=== PATIENT | male | born 1985 | race Caucasian/White ===

== ENCOUNTER 2017-03-10 22:24 | Emergency (ER) | payer MEDICAID ==
[2017-03-10 22:25] VITALS: BP 131/82; PULSE 74; RESP 16; TEMP 98.2; O2SAT 98
[2017-03-10] MEDS ORDERED: DEPA500T3 PO (22:45)
--- NOTE | 2017-03-10 22:45 | PD ---
Physical Exam Date Seen by Provider: Mar 10, 2017 Time Seen by Provider: 22:42 Data Data Last Documented VS Vital Signs Date Time Temp Pulse Resp B/P Pulse Ox O2 Delivery O2 Flow Rate FiO2 03/10/17 22:25 98.2 74 16 131/82 98 Room Air MDM Supervised Visit with RAJAT: No Narrative Course 31 YO M with PMH of epilepsy with complaint of 3 day history of pruritic rash. Started on hands, now spread to shoulder and waist. States "it's scabies." Vitals reviewed. Awaiting bed placement. Claudine Bae Mar 10, 2017 22:45
[2017-03-10] MEDS ORDERED: methylPREDNISolone SOD SUCC 125 MG/2 ML VIAL IM ONE (23:45)
--- NOTE | 2017-03-11 00:10 | PD ---
HPI Chief Complaint: Skin Problem Time Seen by Provider: 23:50 Travel History International Travel<30 days: No Contact w/Intl Traveler<30days: No Traveled to known affect area: No History of Present Illness HPI Patient is a 31-year-old male presenting to emergency for evaluation of a pruritic rash that started 2 days ago. Patient denies any new lotion, detergents, soaps, foods. Patient's partner is present and does not have rash. He denies any fevers, chills, sore throat, cough, chest pain, abdominal pain. PFSH Past Medical History Medical other: Yes (EPILEPSY ) Past Surgical History Surgical History: No Previous Surgery Social History Alcohol Use: No Tobacco Use: No Substance Use: No Allergies-Medications (Allergen,Severity, Reaction): Coded Allergies: No Known Allergies (Unverified , 03/10/17) Reported Meds & Prescriptions Reported Meds & Active Scripts Active Reported Depakote ER (Divalproex Sodium) 500 Mg Jose 1,000 Mg PO DAILY Review of Systems Except as stated in HPI: all other systems reviewed are Neg Skin: Positive Rash, Positive Itching Physical Exam Narrative GENERAL: Well-nourished, well-developed patient. SKIN: Focused skin assessment warm/dry. Fine macular rash on bilateral upper extremities, bilateral hands, anterior chest wall, back. No excoriations, induration, or exudate noted. No petechiae or oral lesions noted. HEAD: Normocephalic. EYES: No scleral icterus. No injection or drainage. NECK: Supple, trachea midline. No JVD or lymphadenopathy. CARDIOVASCULAR: Regular rate and rhythm without murmurs, gallops, or rubs. RESPIRATORY: Breath sounds equal bilaterally. No accessory muscle use. GASTROINTESTINAL: Abdomen soft, non-tender, nondistended. MUSCULOSKELETAL: No cyanosis, or edema. BACK: Nontender without obvious deformity. No CVA tenderness. Data Data Last Documented VS Vital Signs Date Time Temp Pulse Resp B/P Pulse Ox O2 Delivery O2 Flow Rate FiO2 03/10/17 22:25 98.2 74 16 131/82 98 Room Air Orders Methylprednisolone So Succ Inj (Solumedr (03/10/17 23:45) MDM Medical Decision Making Medical Screen Exam Complete: Yes Emergency Medical Condition: Yes Interpretation(s) Vital Signs Date Time Temp Pulse Resp B/P Pulse Ox O2 Delivery O2 Flow Rate FiO2 03/10/17 22:25 98.2 74 16 131/82 98 Room Air Differential Diagnosis Viral exanthem versus contact dermatitis versus herpetic lesions versus allergic reaction versus other Narrative Course Patient's 31-year-old male presenting with 2 days of a pruritic rash that has spread diffusely on his upper extremities and trunk. Patient was given a dose of Solu-Medrol IM in the emergency department. His vital signs are stable, he is no respiratory symptoms. Pt googled scabies and felt that this is what he had however his significant other has no symptoms. Rash does not appear to be consistent with scabies however patient will be given a prescription for permethrin cream. He was advised on how to use this cream. Patient was also seen and evaluated by my attending physician. He was encouraged return to emergency department if no improvement in symptoms or if symptoms worsened. He verbalized understanding of instructions. Patient is stable for discharge. Diagnosis Primary Impression: Scarlatiniform rash Referrals: [facility] Primary Care Physician Patient Instructions: Acute Rash (ED), General Instructions Additional Instructions: Return to emergency department immediately for any new or worsening symptoms Take medications as directed Follow-up with a primary doctor Med/Other Pt SpecificInfo: Prescription(s) given Scripts Permethrin Topical 5% 5% Cream1 Applic TOPICAL ONCE #1 TUBE Ref 0 Prov:Teresita Soni 03/11/17 Prednisone 50 Mg Tab50 Mg PO DAILY #5 TAB Ref 0 Prov:Teresita Soni 03/11/17 Disposition: 01 DISCHARGE HOME Condition: Stable Teresita Soni Mar 11, 2017 00:10
[2017-03-11] MEDS ORDERED: PERM5CRE TOPICAL (00:14)
[2017-03-11] MEDS ORDERED: PRED50 PO (00:14)
== END 2017-03-11 00:21 | disposition home or self-care (01) ==
LOC: NEPD 22:24
DX: A38.9 Scarlet fever, uncomplicated (principal)
CPT/HCPCS: 96372; 99284; J2930

== ENCOUNTER 2017-09-14 19:53 | Inpatient (IN) | payer MEDICARE, MEDICAID, OTHER ==
[~2017-09-14] VITALS: Ht 177.8 cm; Wt 77.0 kg
[~2017-09-14 19:53] MED LIST: DEPA500T3 PO; PERM5CRE TOPICAL; PRED50 PO
[2017-09-14] MEDS ORDERED: SODIUM CHLOR 0.9% 1000 ML INJ 1,000 ML IV SCH ×3 (20:08→22:04)
[2017-09-14] MEDS ORDERED: MIDAZOLAM HCL 2 MG/2 ML VIAL IM ONE ×2 (20:15→22:15)
[2017-09-14] MEDS ORDERED: HALOPERIDOL LACTATE 5 MG/ML AMP IM ONE ×2 (20:15→22:15)
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
[2017-09-14 20:23] VITALS: BP 138/92; PULSE 130; RESP 22; TEMP 100.6; TEMP 99.6
[2017-09-14 20:29] VITALS: BP 125/76; PULSE 103; RESP 16; O2SAT 96
[2017-09-14 21:00] VITALS: BP 129/73; PULSE 90; RESP 20; O2SAT 98
--- NOTE | 2017-09-14 21:02 | RADRPT ---
EXAM DATE/TIME: 09/14/2017 20:35 [facility] COMPARISON: No previous studies available for comparison. INDICATIONS : Evaluate lung status. Patient admitted for psychologic evalautation. MEDICAL HISTORY : Unobtainable. SURGICAL HISTORY : Unobtainable. ENCOUNTER: Initial ACUITY: 1 day PAIN SCORE: Non-responsive. LOCATION: Bilateral chest FINDINGS: A single view of the chest demonstrates the lungs to be symmetrically aerated without evidence of mas s, infiltrate or effusion. The cardiomediastinal contours are unremarkable. Osseous structures are intact. CONCLUSION: No acute disease. Darius Cheney MD on September 14, 2017 at 21:00 Board Certified Radiologist. This report was verified electronically.
[2017-09-14 21:30] LABS: AUTOMATED NEUTROPHIL # 21.7 TH/MM3 (1.8-7.7); BASOPHIL # 0.1 TH/MM3 (0-0.2); BASOPHIL % 0.3 % (0.0-2.0); HEMATOCRIT 48.6 % (39.0-51.0); HEMO FLAGS DIFF FINAL; LYMPH % 10.2 % (9.0-44.0); LYMPHOCYTE # 2.7 TH/MM3 (1.0-4.8); MEAN CELL VOLUME 90.7 FL (80.0-100.0); MEAN CORPUSCULAR HEMOGLOBIN 30.4 PG (27.0-34.0); MEAN CORPUSCULAR HGB CONC 33.5 % (32.0-36.0); MONO % 6.2 % (0.0-8.0); NEUT % 83.3 % (16.0-70.0); PLATELET COUNT 361 TH/MM3 (150-450); RED BLOOD COUNT 5.36 MIL/MM3 (4.50-5.90); RED CELL DISTRIBUTION WIDTH 12.8 % (11.6-17.2)
[2017-09-14 21:33] LABS: APTT (PATIENT) 25.6 SEC (24.3-30.1); INTERNATIONAL NORMALIZED RATIO 1.1 RATIO; PROTHROMBIN TIME - PATIENT 11.5 SEC (9.8-11.6)
[2017-09-14 21:36] LABS: BLOOD, URINE SMALL (NEG); GLUCOSE,URINE TRACE mg/dL (NEG); HYALINE CAST, URINE 163 /lpf (RARE); KETONE, URINE 40 mg/dL (NEG); MUCUS URINE MANY /lpf (OCC); NITRITE,URINE NEG (NEG); SQUAMOUS EPITHELIAL CELL URINE 2 /hpf (0-5); URINE COLOR YELLOW (YELLW/STRAW)
[2017-09-14 21:39] LABS: COMMENT (UR) CATH-CULT NOT IND; CULTURE IF INDICATED CATH CULTURE NOT IND
[2017-09-14 21:42] LABS: ALCOHOL LESS THAN 3 MG/DL (0-5); ANION GAP 19 MEQ/L (5-15); AST (GOT) 21 U/L (15-37); BICARBONATE 23.4 MEQ/L (21.0-32.0); BLOOD UREA NITROGEN 12 MG/DL (7-18); CHLORIDE 101 MEQ/L (98-107); GLOMERULAR FILTRATION RATE 40 ML/MIN (>89); POTASSIUM 3.9 MEQ/L (3.5-5.1); SODIUM (NA) 143 MEQ/L (136-145)
[2017-09-14 21:43] LABS: ALT (GPT) 17 U/L (12-78)
[2017-09-14 21:53] LABS: ALKALINE PHOSPHATASE 104 U/L (45-117); CREATINE KINASE 316 U/L (39-308); TOTAL BILIRUBIN ADULT 0.8 MG/DL (0.2-1.0)
--- NOTE | 2017-09-14 21:58 | RADRPT ---
EXAM DATE/TIME: 09/14/2017 21:37 [facility] COMPARISON: No previous studies available for comparison. INDICATIONS : Trauma. Altered mental status. RADIATION DOSE: 56.35 CTDIvol (mGy) MEDICAL HISTORY : Non-responsive. SURGICAL HISTORY : Non-responsive. ENCOUNTER: Initial ACUITY: 1 day PAIN SCALE: Non-responsive LOCATION: cranial TECHNIQUE: Multiple contiguous axial images were obtained of the head. Using automated exposure control and adj ustment of the mA and/or kV according to patient size, radiation dose was kept as low as reasonably a chievable to obtain optimal diagnostic quality images. DICOM format image data is available electro nically for review and comparison. FINDINGS: CEREBRUM: The ventricles are normal for age. No evidence of midline shift, mass lesion, hemorrhage or acute in farction. No extra-axial fluid collections are seen. POSTERIOR FOSSA: The cerebellum and brainstem are intact. The 4th ventricle is midline. The cerebellopontine angle i s unremarkable. EXTRACRANIAL: The visualized portion of the orbits is intact. SKULL: The calvaria is intact. No evidence of skull fracture. CONCLUSION: Normal examination for a patient of this age. Darius Cheney MD on September 14, 2017 at 21:54 Board Certified Radiologist. This report was verified electronically.
[2017-09-14 22:00] VITALS: BP 120/73; PULSE 94; RESP 18; O2SAT 99
--- NOTE | 2017-09-14 22:02 | RADRPT ---
EXAM DATE/TIME: 09/14/2017 21:39 [facility] COMPARISON: No previous studies available for comparison. INDICATIONS : Trauma. Altered mental status. RADIATION DOSE: 31.86 CTDIvol (mGy) MEDICAL HISTORY : Non-responsive. SURGICAL HISTORY : Non-responsive. ENCOUNTER: Initial ACUITY: 1 day PAIN SCALE: Non-responsive LOCATION: neck TECHNIQUE: Volumetric scanning of the cervical spine was performed. Multiplanar reconstructions in the sagittal, coronal and oblique axial planes were performed. Using automated exposure control and adjustment o f the mA and/or kV according to patient size, radiation dose was kept as low as reasonably achievable to obtain optimal diagnostic quality images. DICOM format image data is available electronically f or review and comparison. FINDINGS: VERTEBRAE: Normal vertebral body height. ALIGNMENT: No evidence of subluxation. C2-C3: The bony spinal canal is normal in size. No evidence of disc bulge or herniation. The neural forami na are bilaterally patent. C3-C4: The bony spinal canal is normal in size. No evidence of disc bulge or herniation. The neural forami na are bilaterally patent. C4-C5: The bony spinal canal is normal in size. No evidence of disc bulge or herniation. The neural forami na are bilaterally patent. C5-C6: There is a left paracentral disc protrusion resulting in mild compression of the left hemicord and le ft lateral recess encroachment. C6-C7: The bony spinal canal is normal in size. No evidence of disc bulge or herniation. The neural forami na are bilaterally patent. C7-T1: The bony spinal canal is normal in size. No evidence of disc bulge or herniation. The neural forami na are bilaterally patent. CONCLUSION: No acute bony abnormality. Left paracentral disc protrusion at C5-6 resulting in at least a mild impr ession on the left hemicord and left lateral recess stenosis. Darius Cheney MD on September 14, 2017 at 21:56 Board Certified Radiologist. This report was verified electronically.
[2017-09-14 22:03] LABS: ACETAMINOPHEN LESS THAN 2.0 MCG/ML (10.0-30.0)
[2017-09-14 22:23] LABS: BLOOD GAS BASE EXCESS -11.4 mmol/L (-2-2); BLOOD GAS CARBOXYHEMOGLOBIN 0.8 % (0-4); BLOOD GAS HCO3 14 mmol/L (22-26); BLOOD GAS METHEMOGLOBIN 0.7 % (0-2); BLOOD GAS O2 HGB SATURATION 95 % (90-100); BLOOD GAS PCO2 29 mmHg (38-42); BLOOD GAS PO2 103 mmHG (61-120); BLOOD GAS TOTAL HGB 14.9 G/DL (12.0-16.0); TEMP CORR TO 98.6
[2017-09-14 22:24] LABS: CRITICAL VALUE YES; DRAW SITE LT RADIAL; FIO2 21 %; NUMBER OF ARTERIAL PUNCTURES 1; STAT YES; ULNAR PULSE PRESENT
[2017-09-14 23:00] VITALS: BP 129/73; PULSE 73; RESP 20; O2SAT 99
[2017-09-14 23:15] LABS: LACTIC ACID GHOST NOT REPORTABLE
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
[2017-09-14] MEDS ORDERED: ONDANSETRON HCL 4 MG/2 ML VIAL IV PUSH PRN (23:45)
[2017-09-14] MEDS ORDERED: BISACODYL 10 MG SUPP RECTAL PRN (23:45)
[2017-09-14] MEDS ORDERED: MAGNESIUM HYDROXIDE SUSP 30 ML CUP PO PRN (23:45)
[2017-09-14] MEDS ORDERED: LACTULOSE SYRUP 20 GM/30 ML CUP PO PRN (23:45)
[2017-09-14] MEDS ORDERED: MISCELLANEOUS NURSING INFORMATION XX SCH (23:45)
[2017-09-14] MEDS ORDERED: PERMETHRIN 5% CREAM 60 GM TOPICAL ONE (23:45)
[2017-09-14] MEDS ORDERED: CHLORHEXIDINE GLUCONATE 2 % 1 PACK (2 CLOTHS) TOP PRN (23:45)
[2017-09-14] MEDS ORDERED: ACETAMINOPHEN 325 MG TAB PO PRN (23:45)
[2017-09-14] MEDS ORDERED: SENNOSIDES 8.6 MG TAB PO PRN (23:45)
[2017-09-14] MEDS ORDERED: RESP: ALBUTEROL 2.5 MG/IPRATROPIUM 0.5 MG NEB (PRN) INH (23:45)
[2017-09-14] MEDS ORDERED: SODIUM CHLORIDE 0.9% FLUSH 10 ML FLUSH IV FLUSH PRN (23:45)
[2017-09-15] VITALS (16 sets, daily range): BP systolic 114–127; BP diastolic 63–77; PULSE 55–100; RESP 13–20; TEMP 97.5–98.8; O2SAT 97–100
[2017-09-15] MEDS ORDERED: SODIUM CHLOR 0.9% 1000 ML INJ 1,000 ML IV ONE ×5 (00:45→01:00)
[2017-09-15] MEDS: CHLORHEXIDINE GLUCONATE 2 % 1 PACK (2 CLOTHS) TOP SCH (04:00)
[2017-09-15 04:13] LABS: MEAN CORPUSCULAR HEMOGLOBIN 30.6 PG (27.0-34.0); MEAN CORPUSCULAR HGB CONC 34.4 % (32.0-36.0); PLATELET COUNT 255 TH/MM3 (150-450); RED BLOOD COUNT 4.39 MIL/MM3 (4.50-5.90); RED CELL DISTRIBUTION WIDTH 12.7 % (11.6-17.2); WHITE BLOOD COUNT 17.4 TH/MM3 (4.0-11.0)
[2017-09-15 04:17] LABS: HEMO FLAGS AUTO DIFF
[2017-09-15 04:31] LABS: ALKALINE PHOSPHATASE 74 U/L (45-117); ALT (GPT) 17 U/L (12-78); ANION GAP 11 MEQ/L (5-15); AST (GOT) 27 U/L (15-37); BICARBONATE 22.9 MEQ/L (21.0-32.0); BLOOD UREA NITROGEN 10 MG/DL (7-18); CHLORIDE 108 MEQ/L (98-107); GLOMERULAR FILTRATION RATE 93 ML/MIN (>89); MAGNESIUM 2.4 MG/DL (1.5-2.5); POTASSIUM 3.4 MEQ/L (3.5-5.1); SODIUM (NA) 142 MEQ/L (136-145); TOTAL BILIRUBIN ADULT 0.7 MG/DL (0.2-1.0)
[2017-09-15] MEDS: SODIUM CHLOR 0.9% 1000 ML INJ 1,000 ML IV SCH ×3 (04:59→23:20)
[2017-09-15 07:16] LABS: BANDS 3 % (0-6); NEUTROPHIL # MANUAL DIFF 13.6 TH/MM3 (1.8-7.7); POLYS (SEG NEUTROPHILS) 75 % (16-70); WBC DIFF SAMPLE 100
[2017-09-15 07:17] LABS: PLATELET ESTIMATE SMEAR NORMAL (NORMAL); PLATELET MORPHOLOGY NORMAL (NORMAL); SCAN/DIFF FINAL DIFF MANUAL
[2017-09-15] MEDS ORDERED: POTASSIUM CHLORIDE 20 MEQ CONTROLLED RELEASE TAB PO ONE (07:30)
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
[2017-09-15] MEDS: predniSONE 50 MG TAB PO SCH (09:00)
[2017-09-15] MEDS: DOCUSATE SODIUM 50 MG/SENNA 8.6 MG TAB PO SCH ×2 (09:00→20:49)
[2017-09-15] MEDS: DIVALPROEX SODIUM E.R. 500 MG TAB PO SCH (09:28)
[2017-09-15] MEDS: FAMOTIDINE 20 MG/2 ML VIAL IV PUSH SCH ×2 (09:32→20:50)
[2017-09-15] MEDS: SODIUM CHLORIDE 0.9% FLUSH 10 ML FLUSH IV FLUSH SCH ×2 (09:32→20:50)
[2017-09-15] MEDS: POTASSIUM CHLOR 10 MEQ PREMIX 100 ML IV SCH ×3 (09:35→12:46)
[2017-09-15] MEDS: MULTIVITAMIN INJ 10 ML, THIAMINE INJ 100 MG, FOLIC ACID INJ 1 MG in SODIUM CHLORID 0.9%... IV SCH (09:42)
[2017-09-15] MEDS: ENOXAPARIN SODIUM 40 MG/0.4 ML SYRINGE SQ SCH (09:46)
--- NOTE | 2017-09-15 13:49 | EKG ---
Date Performed: 09/14/2017 Time Performed: 20:24:17 PTAGE: 32 years EKG: SINUS TACHYCARDIA INCOMPLETE RIGHT BUNDLE BRANCH BLOCK ABNORMAL RHYTHM ECG NO PREVIOUS TRACING DOCTOR: Betsy Gillette Interpretating Date/Time 09/15/2017 13:47:43
[2017-09-15] MEDS ORDERED: MELATONIN 5 MG TAB PO SCH (22:00)
[2017-09-16] VITALS: BP 109/62; PULSE 78; RESP 18; TEMP 97.9; O2SAT 97
[2017-09-16 02:00] VITALS: PULSE 81
[2017-09-16 04:00] VITALS: BP 117/63; PULSE 77; RESP 52; TEMP 99; O2SAT 99
[2017-09-16] MEDS: CHLORHEXIDINE GLUCONATE 2 % 1 PACK (2 CLOTHS) TOP SCH (04:00)
[2017-09-16 06:00] VITALS: PULSE 51
[2017-09-16] MEDS: DIVALPROEX SODIUM E.R. 500 MG TAB PO SCH (08:09)
[2017-09-16] MEDS: FAMOTIDINE 20 MG/2 ML VIAL IV PUSH SCH (08:11)
[2017-09-16] MEDS: ENOXAPARIN SODIUM 40 MG/0.4 ML SYRINGE SQ SCH (08:13)
[2017-09-16] MEDS: DOCUSATE SODIUM 50 MG/SENNA 8.6 MG TAB PO SCH (08:16)
[2017-09-16] MEDS: predniSONE 50 MG TAB PO SCH (08:16)
[2017-09-16] MEDS: SODIUM CHLORIDE 0.9% FLUSH 10 ML FLUSH IV FLUSH SCH (08:17)
[2017-09-16] MEDS: MULTIVITAMIN INJ 10 ML, THIAMINE INJ 100 MG, FOLIC ACID INJ 1 MG in SODIUM CHLORID 0.9%... IV SCH (08:18)
[2017-09-16 08:22] VITALS: O2SAT 100
[2017-09-16] MEDS: SODIUM CHLOR 0.9% 1000 ML INJ 1,000 ML IV SCH (11:24)
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
[2017-09-16] MEDS ORDERED: ARIPiprazole 5 MG TAB PO SCH (12:15)
[2017-09-16] MEDS ORDERED: HALOPERIDOL LACTATE 5 MG/ML AMP IM PRN (12:15)
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
[2017-09-16] MEDS ORDERED: DIVALPROEX SODIUM E.R. 500 MG TAB PO SCH (21:00)
== END 2017-09-16 16:00 | DRG 885 ==
LOC: NEPD 19:53 → NEDA 22:23 → HIMN 09-15 03:30
PROVIDERS: ADMIT Internal Medicine Critical Care Medicine; ATTEND Internal Medicine Critical Care Medicine
DX: F29 Unspecified psychosis not due to a substance or known physiological condition (principal); N17.9 Acute kidney failure, unspecified; E87.2 Acidosis; Z78.1 Physical restraint status; F19.959 Other psychoactive substance use, unspecified with psychoactive substance-induced psychotic disorder, unspecified; R45.1 Restlessness and agitation; F31.9 Bipolar disorder, unspecified; W17.89XA Other fall from one level to another, initial encounter; Y93.01 Activity, walking, marching and hiking; Y92.89 Other specified places as the place of occurrence of the external cause; Y99.9 Unspecified external cause status; M50.222 Other cervical disc displacement at C5-C6 level; E87.6 Hypokalemia; L53.8 Other specified erythematous conditions
CPT/HCPCS: 36600; 70450; 71010; 72125; 80053; 80164; 80178; 80307; 81001; 82550; 82552; 82805; 83605; 83735; 84100; 84443; 85007; 85025; 85027; 85610; 85730; 86403; 87040; 87086; 87186; 87205; 87641; 93005; 96360; 96372; J1630; J1650; J2250; J3411; J3480; J7030; J7040; J7512

== ENCOUNTER 2017-09-16 14:53 | Inpatient (IN) | payer MEDICARE, MEDICAID, OTHER ==
[~2017-09-16] VITALS: Ht 175.3 cm; Wt 72.6 kg
[2017-09-16 16:10] VITALS: BP 127/66; PULSE 82; RESP 18; TEMP 98.6; O2SAT 97
[2017-09-16] MEDS ORDERED: MAGNESIUM HYDROXIDE SUSP 30 ML CUP PO PRN (17:45)
[2017-09-16] MEDS ORDERED: ALUMINUM/MAGNESIUM/SIMETH 30 ML CUP PO PRN (17:45)
[2017-09-16] MEDS ORDERED: diphenhydrAMINE HCL 50 MG/ML VIAL IM PRN (17:45)
[2017-09-16] MEDS ORDERED: NICOTINE 21 MG/24 HR PATCH T-DERMAL PRN (17:45)
[2017-09-17 07:02] VITALS: BP 135/83; PULSE 110; RESP 18; TEMP 97.6; O2SAT 97
[2017-09-17] MEDS ORDERED: predniSONE 50 MG TAB PO SCH (09:00)
[2017-09-17] MEDS: REMOVE OLD PATCH T-DERMAL SCH ×2 (09:00→10:31)
[2017-09-17] MEDS: DIVALPROEX SODIUM E.R. 500 MG TAB PO SCH ×2 (09:13→10:31)
[2017-09-17 11:25] LABS: AUTOMATED NEUTROPHIL # 6.7 TH/MM3 (1.8-7.7); BASOPHIL % 0.3 % (0.0-2.0); EOSINOPHIL % 0.4 % (0.0-4.0); HEMATOCRIT 39.8 % (39.0-51.0); HEMOGLOBIN 13.7 GM/DL (13.0-17.0); LYMPH % 28.4 % (9.0-44.0); LYMPHOCYTE # 2.9 TH/MM3 (1.0-4.8); MEAN CORPUSCULAR HEMOGLOBIN 30.6 PG (27.0-34.0); MEAN CORPUSCULAR HGB CONC 34.4 % (32.0-36.0); MEAN PLATELET VOLUME 8.8 FL (7.0-11.0); MONOCYTE # 0.6 TH/MM3 (0-0.9); NEUT % 64.9 % (16.0-70.0); PLATELET COUNT 258 TH/MM3 (150-450); RED BLOOD COUNT 4.47 MIL/MM3 (4.50-5.90); RED CELL DISTRIBUTION WIDTH 12.7 % (11.6-17.2); WHITE BLOOD COUNT 10.4 TH/MM3 (4.0-11.0)
[2017-09-17 11:52] LABS: BICARBONATE 27.7 MEQ/L (21.0-32.0); BLOOD UREA NITROGEN 5 MG/DL (7-18); CALCIUM 9.1 MG/DL (8.5-10.1); CHLORIDE 105 MEQ/L (98-107); CHOLESTEROL 160 MG/DL (120-200); CHOLESTEROL/ HDL RATIO 4.22 RATIO; CREATININE 0.91 MG/DL (0.60-1.30); GLOMERULAR FILTRATION RATE 98 ML/MIN (>89); GLUCOSE,RANDOM 87 MG/DL (74-106); HDL CHOLESTEROL 37.9 MG/DL (40.0-60.0); LDL CHOLESTEROL 99 MG/DL (0-99); SODIUM (NA) 141 MEQ/L (136-145); TRIGLYCERIDES 117 MG/DL (42-150)
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
--- NOTE | 2017-09-17 13:35 | PD.CONS ---
HPI Service [facility] Hospitalists Consult Requested By Psychiatric services Reason for Consult Medical management Primary Care Physician Unknown Diagnoses: History of Present Illness Written by Gabriella Cedeño, acting as scribe for Dr. Crockett on 09/17/17 at 13: 32. This is a 32yr old male with a past medical history significant for bipolar disorder who was admitted under the critical care service 09/14/17 with acute encephalopathy after patient was brought in under [place] act initiated by the police department and according to the paperwork "drug-induced psychosis, unable to care for himself and striking other siblings". Patient apparently was running naked in the apartment complex and got into altercation with police sergeant. Patient was admitted to critical care service for lactic acidosis with lactic acid of 17.5. Urine drug screen was positive for cannabis. He was seen in consultation by psychiatry and has since been admitted to the inpatient psychiatry service. Hospitalist services have been consulted for medical management. Patient seen and examined today. Patient denies any acute medical complaints. He denies any headache, fever, chills, nausea, vomiting, shortness of breath, chest pain or abdominal pain. He is asking for medication to help with wandering thoughts. Review of Systems Except as stated in HPI: all other systems reviewed are Neg Past Family Social History Allergies: Coded Allergies: No Known Allergies (Unverified Allergy, Unknown, 09/14/17) Past Medical History Bipolar disorder Reported Medications Depakote ER (Divalproex Sodium) 500 Mg Jose 1,000 Mg PO DAILY Active Ordered Medications Current Medications Medications (Trade) Dose Ordered Sig/Tyesha Route Start Time Stop Time Status Last Admin (Ativan) 1 mg Q6H PRN PO 09/16/17 17:45 (Benadryl) 50 mg Q6H PRN PO 09/16/17 17:45 (Benadryl Inj) 50 mg Q6H PRN IM 09/16/17 17:45 (Benadryl) 50 mg HS PRN PO 09/16/17 17:45 (Tylenol) 650 mg Q4H PRN PO 09/16/17 17:45 (Milk Of Magnesia Liq) 30 ml DAILY PRN PO 09/16/17 17:45 (Mag-Al Plus Susp Liq) 30 ml Q6H PRN PO 09/16/17 17:45 (Habitrol 21 Mg Patch.24 Hr) 1 patch DAILY PRN T-DERMAL 09/16/17 17:45 Miscellaneous Information 1 DAILY T-DERMAL 09/17/17 09:00 (Depakote Er) 1,000 mg DAILY PO 09/17/17 09:00 09/17/17 10:31 (Deltasone) 50 mg DAILY PO 09/17/17 09:00 Future Hold (Abilify) 5 mg DAILY PO 09/17/17 12:15 Family History No family medical history of psychiatric illness Social History (+)Marijuana use Physical Exam Vital Signs Vital Signs Date Time Temp Pulse Resp B/P (MAP) Pulse Ox O2 Delivery O2 Flow Rate FiO2 09/17/17 07:02 97.6 110 18 135/83 (100) 97 09/16/17 16:10 98.6 82 18 127/66 (86) 97 Physical Exam GENERAL: This is a well-nourished, well-developed patient, in no apparent distress. Awake and alert. SKIN: No rashes, ecchymoses or lesions. Cool and dry. HEAD: Atraumatic. Normocephalic. No temporal or scalp tenderness. EYES: Pupils equal round and reactive. Extraocular motions intact. No scleral icterus. No injection or drainage. ENT: Nose without bleeding or purulent drainage. Throat without erythema, tonsillar hypertrophy or exudate. Uvula midline. Airway patent. NECK: Trachea midline. No lymphadenopathy. Supple, nontender, no meningeal signs. CARDIOVASCULAR: Regular rate and rhythm. 2/6 midsystolic murmur present. RESPIRATORY: Clear to auscultation. Breath sounds equal bilaterally. No wheezes , rales, or rhonchi. GASTROINTESTINAL: Abdomen soft, non-tender, nondistended. No hepato-splenomegaly , or palpable masses. No guarding. MUSCULOSKELETAL: Extremities without clubbing, cyanosis, or edema. No joint tenderness, effusion, or edema noted. No calf tenderness. NEUROLOGICAL: Awake and alert. Able to move all extremities spontaneously. No focal neurologic findings appreciated. Normal speech. Laboratory Laboratory Tests Test 09/17/17 10:47 White Blood Count 10.4 Red Blood Count 4.47 Hemoglobin 13.7 Hematocrit 39.8 Mean Corpuscular Volume 89.0 Mean Corpuscular Hemoglobin 30.6 Mean Corpuscular Hemoglobin Concent 34.4 Red Cell Distribution Width 12.7 Platelet Count 258 Mean Platelet Volume 8.8 Neutrophils (%) (Auto) 64.9 Lymphocytes (%) (Auto) 28.4 Monocytes (%) (Auto) 6.0 Eosinophils (%) (Auto) 0.4 Basophils (%) (Auto) 0.3 Neutrophils # (Auto) 6.7 Lymphocytes # (Auto) 2.9 Monocytes # (Auto) 0.6 Eosinophils # (Auto) 0.0 Basophils # (Auto) 0.0 CBC Comment DIFF FINAL Differential Comment Blood Urea Nitrogen 5 Creatinine 0.91 Random Glucose 87 Calcium Level 9.1 Sodium Level 141 Potassium Level 3.2 Chloride Level 105 Carbon Dioxide Level 27.7 Anion Gap 8 Estimat Glomerular Filtration Rate 98 Total Creatine Kinase 928 Creatine Kinase MB 1.3 Creatine Kinase MB % 0.1 Triglycerides Level 117 Cholesterol Level 160 LDL Cholesterol 99 HDL Cholesterol 37.9 Cholesterol/HDL Ratio 4.22 Result Diagram: 09/17/17 1047 09/17/17 1047 Assessment and Plan Assessment and Plan 32yr old male with a past medical history significant for bipolar disorder who was admitted under the critical care service 09/14/17 with acute encephalopathy after patient was brought in under [place] act initiated by the police department and according to the paperwork "drug-induced psychosis, unable to care for himself and striking other siblings". Bipolar disorder Acute psychosis - possible drug induced psychosis - TSH 1.600 09/14/17 - management per psychiatric team Hypokalemia - po repletion ordered - check mag level - am labs to monitor response Rhabdomyolysis - CK level trending up - encourage fluid intake - repeat CK in am - monitor kidney function closely - if no improvement, patient may need to be moved to med/psych for IVF hydration Steroid use - no indication for steroids at this time. Discontinue. DVT prophylaxis - patient is ambulatory This note was transcribed by livier [Gabriella Cedeño. ]. I, Dr. Gigi Crockett personally performed the history, physical exam, and medical decision making; and confirmed the accuracy of the information in the transcribed note. Authenticated by Dr. Gigi Crockett on 09/17/17 at 13: 48 Gabriella Cedeño Sep 17, 2017 13:35 Gigi Crockett MD Sep 17, 2017 20:09
[2017-09-17] MEDS: ARIPiprazole 5 MG TAB PO SCH (13:44)
[2017-09-17] MEDS ORDERED: POTASSIUM CHLORIDE 10 MEQ CONTROLLED RELEASE TAB PO ONE (14:15)
[2017-09-17 17:25] VITALS: BP 132/78; PULSE 68; RESP 18; TEMP 98.6; O2SAT 99
[2017-09-18 06:02] VITALS: BP 112/63; PULSE 65; RESP 16; TEMP 99.1; O2SAT 100
[2017-09-18 08:20] LABS: BICARBONATE 30.2 MEQ/L (21.0-32.0); BLOOD UREA NITROGEN 6 MG/DL (7-18); CALCIUM 9.2 MG/DL (8.5-10.1); CHLORIDE 105 MEQ/L (98-107); CREATININE 1.01 MG/DL (0.60-1.30); GLOMERULAR FILTRATION RATE 87 ML/MIN (>89); GLUCOSE,RANDOM 107 MG/DL (74-106); SODIUM (NA) 143 MEQ/L (136-145)
[2017-09-18] MEDS: ARIPiprazole 5 MG TAB PO SCH (09:34)
[2017-09-18] MEDS: DIVALPROEX SODIUM E.R. 500 MG TAB PO SCH (09:35)
[2017-09-18 11:00] LABS: HEMOGLOBIN A1C 5.2 % (4.3-6.0)
--- NOTE | 2017-09-18 13:16 | HHI.PYPN ---
Subjective Remarks This is a request for second opinion. Admission note was reviewed and I agree with the history. Patient was seen and case was discussed with nursing. Patient is a poor historian and cannot give me a clear answer concerning his bizarre behavior. He says he uses marijuana couple days ago but cannot tell me if it was laced or from reliable source. He remains with mild hypokalemia which is being managed by the medical team. He appears quite guarded and anxious during the interview. Denies auditory visual hallucinations. Mental Status Examination Appearance: Appropriate Consciousness: Alert, Vigilant Orientation: x4 Motor Activity: Normal gait Speech: Hesitant Language: Adequate Fund of Knowledge: Adequate Attention and Concentration: Adequate Memory: Unremarkable Mood: Appropriate Affect: Appropriate Thought Process & Associations: Disorganized Thought Content: Bizarre thinking, Thought blocking Hallucination Type: None Delusion Type: Paranoid Suicidal Ideation: No Suicidal Plan: No Suicidal Intention: No Homicidal Ideation: No Homicidal Plan: No Homicidal Intention: No Insight: Adequate Judgment: Adequate Results Labs Test 09/18/17 07:32 Blood Urea Nitrogen 6 MG/DL Creatinine 1.01 MG/DL Random Glucose 107 MG/DL Calcium Level 9.2 MG/DL Sodium Level 143 MEQ/L Potassium Level 3.3 MEQ/L Chloride Level 105 MEQ/L Carbon Dioxide Level 30.2 MEQ/L Anion Gap 8 MEQ/L Estimat Glomerular Filtration Rate 87 ML/MIN Total Creatine Kinase 692 U/L Creatine Kinase MB LESS THAN 0.5 NG/ML Creatine Kinase MB % 0.1 % Vitals/IOs Vital Signs Date Time Temp Pulse Resp B/P (MAP) Pulse Ox O2 Delivery O2 Flow Rate FiO2 09/18/17 06:02 99.1 65 16 112/63 (79) 100 Assessment & Plan Problem List: (1) Unspecified psychosis ICD Codes: F29 - Unspecified psychosis not due to a substance or known physiological condition Assessment & Plan I agree with the first opinion to continue petition. Criteria include acute psychosis Justification for Cont. Inpt. Patient will decompensate in a less restrictive setting Arnoldo Acevedo DO Sep 18, 2017 13:16
[2017-09-18] MEDS ORDERED: POTASSIUM CHLORIDE 20 MEQ CONTROLLED RELEASE TAB PO ONE (14:00)
[2017-09-18] MEDS: LORazepam 1 MG TAB PO PRN (20:55)
[2017-09-18] MEDS: ACETAMINOPHEN 325 MG TAB PO PRN (20:58)
[2017-09-18 21:11] VITALS: BP 136/73; PULSE 83; RESP 17; TEMP 98.6; O2SAT 99
[2017-09-19 06:08] VITALS: BP 107/63; PULSE 65; TEMP 97.5; O2SAT 99
[2017-09-19] MEDS: REMOVE OLD PATCH T-DERMAL SCH (09:00)
[2017-09-19] MEDS: ARIPiprazole 5 MG TAB PO SCH ×2 (09:24→20:29)
[2017-09-19 14:01] LABS: ALBUMIN 4.5 GM/DL (3.4-5.0); AST (GOT) 22 U/L (15-37); BICARBONATE 28.3 MEQ/L (21.0-32.0); BLOOD UREA NITROGEN 8 MG/DL (7-18); CALCIUM 9.5 MG/DL (8.5-10.1); CHLORIDE 104 MEQ/L (98-107); CREATININE 0.95 MG/DL (0.60-1.30); DIRECT BILIRUBIN ADULT 0.2 MG/DL (0.0-0.2); GLOMERULAR FILTRATION RATE 93 ML/MIN (>89); GLUCOSE,RANDOM 105 MG/DL (74-106); SODIUM (NA) 139 MEQ/L (136-145)
[2017-09-19 14:07] LABS: ALKALINE PHOSPHATASE 78 U/L (45-117); ALT (GPT) 27 U/L (12-78); INDIRECT BILIRUBIN 0.3 MG/DL (0.0-0.8); TOTAL BILIRUBIN ADULT 0.5 MG/DL (0.2-1.0); TOTAL PROTEIN 7.8 GM/DL (6.4-8.2)
--- NOTE | 2017-09-19 14:46 | PD.TTN ---
Patient Problems 1. Discharge planning 2. Medication compliance 3. Knowledge deficit 4. Lack of coping skills Progress Toward Goals Provider Present: Dr. Gloria Lester Provider Input: Pt is new from over the weekend and will be evaluated by this provider today as well as medication regiment. Nurse(s) Present: Zahra Hurley RN Nurse(s) Input: Pt appears religiously preoccupied, delusional, psychotic, paranoid and withdrawn. Psychiatric Counselors Present: ANIA Garrett Psych Therapist Input: Pt appears calm, guarded, delusional, paranoid, bizarre and to be responding to internal stimuli. He has been compliant with medication regiment. Pt presents with limited insight into condition and need for care. Pt presents with limited coping and emotional regulation skills as evidenced by behavior leading to admission. Group Spec/RT/OT/KUNZ Present: CRISTOBAL Hernandez Group Spec/RT/OT/KUNZ Input: Pt is a new admission from the weekend and will be evaluated. Discharge Plan SMA Pt will return home to live with his fiancee and will be linked to outpatient psychiatric follow up services. Documentation Scribe: ANIA Garrett Jonathan LMHC Sep 19, 2017 14:46
--- NOTE | 2017-09-19 15:01 | HHI.PYPN ---
Subjective Remarks Patient seen for follow-up, chart review. Patient found wandering in the hallway was able to engage in interview today. Patient at the onset of interview requested to review past from the Bible and pointed to a past attempt was written Moz[place]ican which procedure writer had mentioned cannot read management. When asked if he had any ideation ancestry he stated that his sister was "mandarin." Patient was noted to be disorganized about interview, noted to ask permission from the nurse to be able to speak, had loosening of associations, and tangential at times. Patient asked nurse to be his "narrator". Patient was unable to recall events that brought to the hospital and noted to jump topics. Patient this time acutely psychotic requiring further stabilization. Review of Systems Except as stated in HPI: all other systems reviewed are Neg Mental Status Examination Appearance: Appropriate Consciousness: Alert, Vigilant Orientation: x4 Motor Activity: Normal gait Speech: Hesitant Language: Adequate Fund of Knowledge: Adequate Attention and Concentration: Adequate Memory: Unremarkable Mood: Appropriate Affect: Blunt Thought Process & Associations: Loose associations, Disorganized, Tangential Thought Content: Bizarre thinking Hallucination Type: None Delusion Type: Paranoid Suicidal Ideation: No Suicidal Plan: No Suicidal Intention: No Homicidal Ideation: No Homicidal Plan: No Homicidal Intention: No Insight: Poor Judgment: Poor Results Labs Labs reviewed Test 09/19/17 13:24 Blood Urea Nitrogen 8 MG/DL Creatinine 0.95 MG/DL Random Glucose 105 MG/DL Total Protein 7.8 GM/DL Albumin 4.5 GM/DL Calcium Level 9.5 MG/DL Alkaline Phosphatase 78 U/L Aspartate Amino Transf (AST/SGOT) 22 U/L Alanine Aminotransferase (ALT/SGPT) 27 U/L Total Bilirubin 0.5 MG/DL Direct Bilirubin 0.2 MG/DL Sodium Level 139 MEQ/L Potassium Level 3.3 MEQ/L Chloride Level 104 MEQ/L Carbon Dioxide Level 28.3 MEQ/L Anion Gap 7 MEQ/L Estimat Glomerular Filtration Rate 93 ML/MIN Indirect Bilirubin 0.3 MG/DL Ammonia 28 MCMOL/L Total Creatine Kinase 528 U/L Creatine Kinase MB LESS THAN 0.5 NG/ML Creatine Kinase MB % 0.1 % Vitals/IOs Vital Signs Date Time Temp Pulse Resp B/P (MAP) Pulse Ox O2 Delivery O2 Flow Rate FiO2 09/19/17 06:08 97.5 65 107/63 (78) 99 09/18/17 21:11 17 Assessment & Plan Problem List: (1) Unspecified psychosis ICD Codes: F29 - Unspecified psychosis not due to a substance or known physiological condition Assessment & Plan Patient at this time continues to be noted to be acutely psychotic, disorganized , loosening associations and tangential. Patient recent labs showed patient with CK cutting down, mildly hypokalemic with normal ammonia levels. We'll increase Abilify to 5 g by mouth twice a day, continue Depakote 1000 mg by mouth daily. Valproic acid level will be drawn on 09/21/17 in the morning prior to first dose. Continue to monitor mood and behavior. Continue recommendations as per primary medical team. Discharge planning in progress Justification for Cont. Inpt. At risk for further decompensation if at lower level of care Discharge Planning Patient to return back to his residence once psychiatrically medically cleared Raj Lester MD Sep 19, 2017 15:01
[2017-09-19] MEDS ORDERED: POTASSIUM CHLORIDE 10 MEQ CONTROLLED RELEASE TAB PO ONE (16:00)
--- NOTE | 2017-09-19 16:01 | HHI.PR ---
Subjective Remarks Follow-up on patient with rhabdomyolysis, hypokalemia. Patient seen and examined. Patient denies any complaints at this time. He denies any fever or chills. Denies any chest pain or shortness of breath. Denies any nausea, vomiting or abdominal pain. Discussed with the nursing staff, no acute issues noted. Objective Vitals Vital Signs Date Time Temp Pulse Resp B/P (MAP) Pulse Ox O2 Delivery O2 Flow Rate FiO2 09/19/17 06:08 97.5 65 107/63 (78) 99 09/18/17 21:11 98.6 83 17 136/73 (94) 99 Result Diagram: 09/17/17 1047 09/19/17 1324 Objective Remarks GENERAL: This is a well-nourished, well-developed patient, in no apparent distress. Awake and alert. Sitting in the day room. SKIN: Warm and dry. HEAD: Atraumatic. Normocephalic. EYES: Extraocular motions intact. No scleral icterus. No injection or drainage. ENT: Nose without bleeding or purulent drainage. Airway patent. NECK: Trachea midline. CARDIOVASCULAR: Regular rate and rhythm. RESPIRATORY: Clear to auscultation. Breath sounds equal bilaterally. No wheezes , rales, or rhonchi. GASTROINTESTINAL: Abdomen soft, non-tender, nondistended. No hepato-splenomegaly , or palpable masses. No guarding. MUSCULOSKELETAL: Extremities without clubbing, cyanosis, or edema. NEUROLOGICAL: Awake and alert. Able to move all extremities spontaneously. Nonfocal. Normal speech. Medications and IVs Current Medications Medications (Trade) Dose Ordered Sig/Tyesha Route Start Time Stop Time Status Last Admin (Ativan) 1 mg Q6H PRN PO 09/16/17 17:45 09/18/17 20:55 (Benadryl) 50 mg Q6H PRN PO 09/16/17 17:45 (Benadryl Inj) 50 mg Q6H PRN IM 09/16/17 17:45 (Benadryl) 50 mg HS PRN PO 09/16/17 17:45 (Tylenol) 650 mg Q4H PRN PO 09/16/17 17:45 09/18/17 20:58 (Milk Of Magnesia Liq) 30 ml DAILY PRN PO 09/16/17 17:45 (Mag-Al Plus Susp Liq) 30 ml Q6H PRN PO 09/16/17 17:45 (Habitrol 21 Mg Patch.24 Hr) 1 patch DAILY PRN T-DERMAL 09/16/17 17:45 Miscellaneous Information 1 DAILY T-DERMAL 09/17/17 09:00 09/19/17 09:00 (Depakote Er) 1,000 mg DAILY PO 09/17/17 09:00 09/18/17 09:35 (Deltasone) 50 mg DAILY PO 09/17/17 09:00 Future Hold (Abilify) 5 mg BID PO 09/19/17 21:00 A/P Assessment and Plan 32yr old male with a past medical history significant for bipolar disorder who was admitted under the critical care service 09/14/17 with acute encephalopathy after patient was brought in under [place] act initiated by the police department and according to the paperwork "drug-induced psychosis, unable to care for himself and striking other siblings". Bipolar disorder Acute psychosis - possible drug induced psychosis - TSH 1.600 09/14/17 - management per psychiatric team Hypokalemia - po repletion ordered -Recommend recheck BMP in 2-3 days' time. Rhabdomyolysis - CK level trending down - encourage fluid intake - Kidney function within normal limits, stable Steroid use - no indication for steroids at this time. Discontinue. DVT prophylaxis - patient is ambulatory Discussed with patient, nursing staff and Dr. Bartholomew Patient appears stable from a hospitalist standpoint. Will sign off for now. Please reconsult if needed. Gabriella Cedeño Sep 19, 2017 16:01
[2017-09-19 18:00] VITALS: BP 133/79; PULSE 82; RESP 16; TEMP 98.7; O2SAT 99
[2017-09-19] MEDS: diphenhydrAMINE HCL 50 MG CAP PO PRN (20:29)
[2017-09-20 05:43] VITALS: BP 105/65; PULSE 70; RESP 18; TEMP 97.9; O2SAT 99
[2017-09-20] MEDS: ARIPiprazole 5 MG TAB PO SCH ×2 (09:00→20:56)
[2017-09-20] MEDS: REMOVE OLD PATCH T-DERMAL SCH (09:00)
[2017-09-20] MEDS: DIVALPROEX SODIUM E.R. 500 MG TAB PO SCH ×2 (09:00→20:56)
--- NOTE | 2017-09-20 14:20 | HHI.PYPN ---
Subjective Remarks Patient was seen for psychiatric reevaluation. Chart reviewed. Case discussed with nurse in charge and also with Dr. Lester. On psychiatric evaluation patient is found in the recreational area of the unit, patient is extremely disorganized, very intrusive, paranoid, stating that people here are trying to look inside his brain "and take my eyes out". He she says that since he is very scared "I am praying to me god Charleslali, have you ever her about the taoist Alilali doctor?" . She use of multiple neologisms, with Shiraz loosening of associations and flight of ideas. However, no agitation or aggressive behavior reported. He is usually redirectable, compliant with his medications, no significant side effects reported. He is fully oriented 3, no attention deficit, no fluctuation of consciousness present. Review of Systems Psychiatric: COMPLAINS OF: Delusions Except as stated in HPI: all other systems reviewed are Neg Mental Status Examination Appearance: Appropriate Consciousness: Alert, Vigilant Orientation: x4 Motor Activity: Normal gait Speech: Hesitant Language: Adequate Fund of Knowledge: Adequate Attention and Concentration: Adequate Memory: Unremarkable Mood: Appropriate Affect: Blunt Thought Process & Associations: Loose associations, Disorganized, Tangential Thought Content: Bizarre thinking Hallucination Type: None Delusion Type: Paranoid Suicidal Ideation: No Suicidal Plan: No Suicidal Intention: No Homicidal Ideation: No Homicidal Plan: No Homicidal Intention: No Insight: Poor Judgment: Poor Results Vitals/IOs Vital Signs Date Time Temp Pulse Resp B/P (MAP) Pulse Ox O2 Delivery O2 Flow Rate FiO2 09/20/17 05:43 97.9 70 18 105/65 (78) 99 Intake and Output 09/20/17 09/20/17 09/21/17 08:00 16:00 00:00 Intake Total 600 ml Balance 600 ml Assessment & Plan Problem List: (1) Unspecified psychosis ICD Codes: F29 - Unspecified psychosis not due to a substance or known physiological condition Assessment & Plan: Patient continues to be very disorganized, paranoid, with prominent loosening of associations, flight of ideas, neologisms. Will increase Abilify to 10 mg twice a day for psychosis. Will split Depakote to 500 mg twice a day for mood stabilization. Will order Depakote levels. Labs reviewed. Hospitalist input appreciated. Assessment & Plan Estimated LOS: days Justification for Cont. Inpt. Patient is acutely psychotic, he needs to continue his psychiatric hospitalization for stabilization. Jesse Heredia MD Sep 20, 2017 14:20
[2017-09-20 18:47] VITALS: BP 126/65; PULSE 103; RESP 18; TEMP 98.8; O2SAT 98
[2017-09-21 06:15] VITALS: BP 109/69; PULSE 87; RESP 18; TEMP 98
[2017-09-21] MEDS: REMOVE OLD PATCH T-DERMAL SCH (09:00)
[2017-09-21] MEDS: ARIPiprazole 5 MG TAB PO SCH (09:38)
[2017-09-21] MEDS: DIVALPROEX SODIUM E.R. 500 MG TAB PO SCH ×2 (09:38→20:55)
--- NOTE | 2017-09-21 13:47 | HHI.PYPN ---
Subjective Remarks Patient seen for follow-up, chart reviewed. Physician nursing staff reported patient was very irritable and yelling this morning, continued to be disorganized and psychotic. Patient was found lying in hospital bed, cooperative interview today. Patient noted to be internally preoccupied at times but able to engage more in interview compared to her initial presentation. Patient states feeling "good" reports sleeping well denies any difficulty eating and drinking require she states that her mood in general has been good denies any psychiatric progress denies any perceptual disturbances or any paranoid ideations at this time. Patient states that prior to his hospitalization he had been having a lot of stressors living his community was unable to elaborate. Patient states that he had inconsistency with maintaining compliance with medications but states now that he believes that he may need to continue taking this on a consistent basis to remain well. Patient at this time denies SI, HI, AVH or delusions. Review of Systems Except as stated in HPI: all other systems reviewed are Neg Mental Status Examination Appearance: Appropriate Consciousness: Alert, Vigilant Orientation: x4 Motor Activity: Normal gait Speech: Hesitant Language: Adequate Fund of Knowledge: Adequate Attention and Concentration: Adequate Memory: Unremarkable Mood: Appropriate Affect: Blunt Thought Process & Associations: Disorganized (less so today), Tangential (less so today) Thought Content: Bizarre thinking Hallucination Type: None Delusion Type: Paranoid Suicidal Ideation: No Suicidal Plan: No Suicidal Intention: No Homicidal Ideation: No Homicidal Plan: No Homicidal Intention: No Insight: Poor Judgment: Poor Results Labs Labs reviewed Test 09/20/17 17:21 Valproic Acid (Depakene) Level 112 MCG/ML Vitals/IOs Vital Signs Date Time Temp Pulse Resp B/P (MAP) Pulse Ox O2 Delivery O2 Flow Rate FiO2 09/21/17 06:15 98.0 87 18 109/69 (82) 09/20/17 18:47 98 Assessment & Plan Problem List: (1) Unspecified psychosis ICD Codes: F29 - Unspecified psychosis not due to a substance or known physiological condition Assessment & Plan Patient at this time with recent irritability in the morning and noted to be continued to be disorganized but during interview with short story writer today noted to be slightly more engaging with occasional disorganization but able to maintain or train of thought today. Patient noted to have less bizarre and nonsensical statements, appears to be tolerating medications well. Depakote level was supratherapeutic therefore Depakote be decreased to 250 mg a.m./500 mg at bedtime, increase Abilify to 10 mg a.m. and 50 mg at bedtime for psychosis. Continue recommendations as per primary medical team. Will draw repeat Depakote levels soon. Discharge planning in progress Justification for Cont. Inpt. At risk for further decompensation if at lower level of care Discharge Planning Patient to return back to his residence once psychiatrically stable Raj Lester MD Sep 21, 2017 13:47
--- NOTE | 2017-09-21 15:30 | PD.TTN ---
Patient Problems 1. Discharge planning 2. Medication compliance 3. Knowledge deficit 4. Lack of coping skills Progress Toward Goals Provider Present: Dr. Gloria Lester Provider Input: Pt is new from over the weekend and will be evaluated by this provider today as well as medication regiment. 09/21- Pt appears psychotic, delusional and his medication regiment will be adjusted. Nurse(s) Present: Zahra Hurley RN Nurse(s) Input: Pt appears religiously preoccupied, delusional, psychotic, paranoid and withdrawn. 09/21- Chika James RN Pt appears disorganized, less agitated, psychotic and with improving behaviors on unit. Psychiatric Counselors Present: ANIA Garrett Psych Therapist Input: Pt appears calm, guarded, delusional, paranoid, bizarre and to be responding to internal stimuli. He has been compliant with medication regiment. Pt presents with limited insight into condition and need for care. Pt presents with limited coping and emotional regulation skills as evidenced by behavior leading to admission. 09/21- Pt continues to appear delusional, psychotic and disorganized on unit. He remains largely to himself and can become agitated at times though less so today. He presents with limited insight into condition and need for care. Pt shows limited coping and emotional regulation skills at this time. He has been compliant with medication regiment. Group Spec/RT/OT/KUNZ Present: CRISTOBAL Hernandez, JOAQUINA Flaherty Group Spec/RT/OT/KUNZ Input: Pt is a new admission from the weekend and will be evaluated. 09/21- Pt appears delusional, requires redirection, is disorganized and attends only select groups. Discharge Plan SMA Pt will return home to live with his fiancee and will be linked to outpatient psychiatric follow up services. Documentation Scribe: ANIA Garrett Jonathan LMHC Sep 21, 2017 15:30
[2017-09-21 16:08] VITALS: BP 138/76; PULSE 64; RESP 18; TEMP 98.1; O2SAT 99
[2017-09-21] MEDS ORDERED: ARIPiprazole 15 MG TAB PO SCH (21:00)
[2017-09-22 05:54] VITALS: BP 130/82; PULSE 88; RESP 18; TEMP 98; O2SAT 100
[2017-09-22] MEDS: ARIPiprazole 10 MG TAB PO SCH (08:53)
[2017-09-22] MEDS: REMOVE OLD PATCH T-DERMAL SCH (08:53)
[2017-09-22] MEDS ORDERED: DIVALPROEX SODIUM E.R. 250 MG TAB PO SCH (09:00)
--- NOTE | 2017-09-22 12:56 | HHI.PYPN ---
Subjective Remarks Patient seen for follow-up, chart reviewed. [employer] [facility] staff reported the patient was noted to be irritable religiously preoccupied inappropriate and disorganized. Patient was noted to be explosive this morning when he was noticing that he was brought they can history. Less reported that patient's fianc had called nursing staff and stated that she is concerned that patient still has now returned to baseline. Patient was admitted to mental health court today for a petition for involuntary hospitalization which tumbler machine operator had decided patient to be retained in hospital to the concerns for patient's ability care for self as he had been recently presenting very symptomatic psychotic. Patient did not testify in court but was noted to be cordial and polite. Patient is repeat Depakote level decreased to 118 and will be continued to be monitored. Patient has follow-up Depakote level will be ordered tomorrow prior to first dose to get a more accurate reading of patient' s current Depakote levels. Patient noted to be more linear and organized compared to this hospitalization but continues to require further stabilization. Review of Systems Except as stated in HPI: all other systems reviewed are Neg Mental Status Examination Appearance: Appropriate Consciousness: Alert, Vigilant Orientation: x4 Motor Activity: Normal gait Speech: Hesitant Language: Adequate Fund of Knowledge: Adequate Attention and Concentration: Adequate Memory: Unremarkable Mood: Appropriate Affect: Blunt Thought Process & Associations: Disorganized (less so today), Tangential (less so today) Thought Content: Bizarre thinking Hallucination Type: None Delusion Type: Paranoid Suicidal Ideation: No Suicidal Plan: No Suicidal Intention: No Homicidal Ideation: No Homicidal Plan: No Homicidal Intention: No Insight: Poor Judgment: Poor Results Labs Labs reviewed Test 09/21/17 13:43 09/22/17 05:17 Valproic Acid (Depakene) Level 133 MCG/ML 118 MCG/ML Vitals/IOs Vital Signs Date Time Temp Pulse Resp B/P (MAP) Pulse Ox O2 Delivery O2 Flow Rate FiO2 09/22/17 05:54 98.0 88 18 130/82 (98) 100 Assessment & Plan Problem List: (1) Unspecified psychosis ICD Codes: F29 - Unspecified psychosis not due to a substance or known physiological condition Assessment & Plan Patient this time continues to require psychiatric stabilization as she continues to be noted to be disorganized, preoccupied with discharge, religiously preoccupied and irritable. We'll increase Abilify to 20 mg by mouth at bedtime with upward titration as needed. Depakote level will be drawn again tomorrow morning to try and Depakote level was previously supratherapeutic. Continue some medications. Discharge planning in progress Justification for Cont. Inpt. At risk for further decompensation if at lower level of care Discharge Planning Patient to be discharged back to his girlfriend's residence was psychiatrically stable. Raj Lester MD Sep 22, 2017 12:56
[2017-09-22 17:15] VITALS: BP 129/81; PULSE 94; RESP 18; TEMP 98.8; O2SAT 97
[2017-09-22] MEDS: DIVALPROEX SODIUM E.R. 500 MG TAB PO SCH (20:43)
[2017-09-23 06:17] VITALS: BP 140/92; PULSE 81; RESP 18; TEMP 97.5; O2SAT 99
[2017-09-23] MEDS: ARIPiprazole 10 MG TAB PO SCH (09:00)
[2017-09-23] MEDS: REMOVE OLD PATCH T-DERMAL SCH (09:00)
[2017-09-23] MEDS: LORazepam 1 MG TAB PO PRN (12:53)
--- NOTE | 2017-09-23 14:21 | HHI.PYPN ---
Subjective Remarks Patient seen for follow-up, chart reviewed. Position at [facility] reported patient is when was noted to be irritable, paranoid and at times being understood station window. Was also reported that when patient's fianc candidly that he was being loud and argumentative with her during visit. Patient found sitting in day room but recall cooperative interview today. Patient states that she was upset that he has to continues to in hospital, noted to be somewhat disorganized in interview he nonsensical statements about Jews and Arabs and how that has an impact on his stay here. He has either have some loosening associations jumping from topic to topic mentioning his therapy at home with his dog, mentioning fine with his outpatient provider, mentioning paranoia due to documents and discharged which she has requested copies of from nurses. Patient appears to continue to be disorganized, paranoid along with occasional hoahaoism delusions, irritable poor impulse control. Review of Systems Except as stated in HPI: all other systems reviewed are Neg Mental Status Examination Appearance: Appropriate Consciousness: Alert, Vigilant Orientation: x4 Motor Activity: Normal gait Speech: Pressured Language: Adequate Fund of Knowledge: Adequate Attention and Concentration: Adequate Memory: Unremarkable Mood: Irritable Affect: Labile, Anxious Thought Process & Associations: Loose associations, Disorganized (less so today ), Tangential (less so today) Thought Content: Bizarre thinking Hallucination Type: None Delusion Type: Paranoid Suicidal Ideation: No Suicidal Plan: No Suicidal Intention: No Homicidal Ideation: No Homicidal Plan: No Homicidal Intention: No Insight: Poor Judgment: Poor Results Labs Labs reviewed Test 09/23/17 09:37 Valproic Acid (Depakene) Level 111 MCG/ML Vitals/IOs Vital Signs Date Time Temp Pulse Resp B/P (MAP) Pulse Ox O2 Delivery O2 Flow Rate FiO2 09/23/17 06:17 97.5 81 18 140/92 (108) 99 Assessment & Plan Problem List: (1) Unspecified psychosis ICD Codes: F29 - Unspecified psychosis not due to a substance or known physiological condition Assessment & Plan Patient continues to be noted to be disorganized, pressured speech, irritable poor impulse control is hoahaoism delusions and appears to not be responding well to Abilify at Dose. We'll cross taper over to olanzapine starting with 10 mg by mouth at bedtime tonight reducing Abilify to 20 mg by mouth a.m. continue the cross taper. Patient although was supratherapeutic 111 prior to first dose morning therefore difficult it is to 250 mg by mouth twice a day with subsequent valproic acid levels to continue to trend levels. Continue observation would've behavior. Discharge planning in progress. Justification for Cont. Inpt. Respiratory decompensation at a lower level of care Discharge Planning Patient to return back to his fianc's residence once psychiatrically stable. Raj Lester MD Sep 23, 2017 14:21
[2017-09-23 17:30] VITALS: BP 126/74; PULSE 72; RESP 18; TEMP 98.2; O2SAT 100
[2017-09-23] MEDS: DIVALPROEX SODIUM E.R. 250 MG TAB PO SCH (21:18)
[2017-09-23] MEDS: OLANZapine 5 MG TAB PO SCH (21:18)
[2017-09-24 06:42] VITALS: BP 134/87; PULSE 56; RESP 18; TEMP 98.3; O2SAT 99
[2017-09-24] MEDS: REMOVE OLD PATCH T-DERMAL SCH (09:00)
[2017-09-24] MEDS: DIVALPROEX SODIUM E.R. 250 MG TAB PO SCH ×2 (09:35→21:00)
[2017-09-24] MEDS: ARIPiprazole 10 MG TAB PO SCH (09:36)
[2017-09-24] MEDS: LORazepam 1 MG TAB PO PRN (11:06)
[2017-09-24] MEDS ORDERED: OLANZapine IM 10 MG VIAL IM ONE (14:35)
[2017-09-24] MEDS ORDERED: LORazepam 2 MG/ML VIAL ONE (14:36)
--- NOTE | 2017-09-24 15:24 | HHI.PYPN ---
Subjective Remarks Patient was seen and case discussed with nursing. Today patient is quite agitated and threatening. He is hyperverbal and loud switching from Turkish and Frisian. He was cursing at staff and another patient and had to receive an ETO. Mental Status Examination Appearance: Appropriate Consciousness: Alert, Vigilant Orientation: x4 Motor Activity: Normal gait Speech: Pressured Language: Adequate Fund of Knowledge: Adequate Attention and Concentration: Adequate Memory: Unremarkable Mood: Irritable Affect: Labile, Anxious Thought Process & Associations: Loose associations, Disorganized (less so today ), Tangential (less so today) Thought Content: Bizarre thinking Hallucination Type: None Delusion Type: Paranoid Suicidal Ideation: No Suicidal Plan: No Suicidal Intention: No Homicidal Ideation: No Homicidal Plan: No Homicidal Intention: No Insight: Poor Judgment: Poor Results Vitals/IOs Vital Signs Date Time Temp Pulse Resp B/P (MAP) Pulse Ox O2 Delivery O2 Flow Rate FiO2 09/24/17 06:42 98.3 56 18 134/87 (103) 99 Assessment & Plan Problem List: (1) Unspecified psychosis ICD Codes: F29 - Unspecified psychosis not due to a substance or known physiological condition Assessment & Plan Continue current treatment plan Justification for Cont. Inpt. Patient would decompensate in a less restrictive setting Arnoldo Acevedo DO Sep 24, 2017 15:24
[2017-09-24 17:45] VITALS: BP 114/80; PULSE 130; RESP 18; TEMP 98; O2SAT 99
[2017-09-24] MEDS: OLANZapine 5 MG TAB PO SCH (21:01)
[2017-09-25 05:47] VITALS: BP 126/85; PULSE 90; RESP 16; TEMP 97.6; O2SAT 100
[2017-09-25] MEDS: REMOVE OLD PATCH T-DERMAL SCH (09:00)
[2017-09-25] MEDS: DIVALPROEX SODIUM E.R. 250 MG TAB PO SCH ×2 (09:35→20:13)
[2017-09-25] MEDS: ARIPiprazole 10 MG TAB PO SCH (09:35)
--- NOTE | 2017-09-25 13:14 | HHI.PYPN ---
Subjective Remarks Patient was seen and case discussed with nursing. Depakote is trending down is now 80. Patient's behavior has improved today. He is not required an ETO's. Has not had any altercations. He remains quite manic. He is pressured, irritable, flight of ideas and very defensive. Denies psychotic symptoms Mental Status Examination Appearance: Appropriate Consciousness: Alert, Vigilant Orientation: x4 Motor Activity: Normal gait Speech: Pressured Language: Adequate Fund of Knowledge: Adequate Attention and Concentration: Adequate Memory: Unremarkable Mood: Irritable, Manic Affect: Labile, Anxious Thought Process & Associations: Loose associations, Disorganized (less so today ), Tangential (less so today) Thought Content: Bizarre thinking Hallucination Type: None Delusion Type: Paranoid Suicidal Ideation: No Suicidal Plan: No Suicidal Intention: No Homicidal Ideation: No Homicidal Plan: No Homicidal Intention: No Insight: Poor Judgment: Poor Results Labs Test 09/25/17 06:13 Valproic Acid (Depakene) Level 80 MCG/ML Vitals/IOs Vital Signs Date Time Temp Pulse Resp B/P (MAP) Pulse Ox O2 Delivery O2 Flow Rate FiO2 09/25/17 05:47 97.6 90 16 126/85 (99) 100 Assessment & Plan Problem List: (1) Unspecified psychosis ICD Codes: F29 - Unspecified psychosis not due to a substance or known physiological condition (2) Unspecified mood [affective] disorder ICD Codes: F39 - Unspecified mood [affective] disorder Assessment & Plan Continue current treatment plan Justification for Cont. Inpt. Patient would decompensate in a less restrictive setting Arnoldo Acevedo DO Sep 25, 2017 13:14
[2017-09-25] MEDS: LORazepam 1 MG TAB PO PRN (16:00)
[2017-09-25 18:00] VITALS: BP 145/61; PULSE 117; RESP 16; TEMP 98.2; O2SAT 100
[2017-09-25] MEDS: OLANZapine 5 MG TAB PO SCH (20:14)
[2017-09-26 05:57] VITALS: BP 141/84; PULSE 101; RESP 18; TEMP 97.9
[2017-09-26] MEDS ORDERED: ZIPRASIDONE MESYLATE 20 MG VIAL IM ONE ×2 (07:30→08:00)
[2017-09-26] MEDS ORDERED: LORazepam 2 MG/ML VIAL ONE (07:31)
[2017-09-26] MEDS ORDERED: LORazepam 2 MG/ML VIAL IM ONE (08:00)
[2017-09-26] MEDS ORDERED: diphenhydrAMINE HCL 50 MG/ML VIAL IM ONE (08:00)
[2017-09-26] MEDS: REMOVE OLD PATCH T-DERMAL SCH (09:00)
[2017-09-26] MEDS: DIVALPROEX SODIUM E.R. 250 MG TAB PO SCH ×2 (09:00→20:22)
[2017-09-26] MEDS: ARIPiprazole 10 MG TAB PO SCH (09:00)
[2017-09-26] MEDS: LORazepam 1 MG TAB PO PRN (09:14)
--- NOTE | 2017-09-26 10:14 | EKG ---
Date Performed: 09/23/2017 Time Performed: 14:42:18 PTAGE: 32 years EKG: Sinus rhythm WITH SINUS ARRHYTHMIA NONSPECIFIC ST ELEVATION BORDERLINE ECG PREVIOUS TRACING : 09/14/2017 20.24 DOCTOR: Adalid Beal Interpretating Date/Time 09/26/2017 10:11:57
--- NOTE | 2017-09-26 10:30 | HHI.PYPN ---
Subjective Remarks Patient seen and examined with nurse in coverage for Dr. Lester. Chart reviewed. Case discussed with RN. Patient received Geodon/Ativan/Benadryl ETO this morning, I am told because he came out of his room with a sheet wrapped around his head trying to head-butt people. On my exam this morning, patient is paranoid, intrusive and angry. He is internally stimulated. Thought disorder present, and when he asks how I am doing and I respond 'well', he associates to a water well and then tells me "well is deep" and expressed hope that the well is not poisoned. He minimizes his behavior this morning and insists that he was given the ETO solely because of he had the sheet on his head. Denies side effects from medications but is resistant to medication changes. No physical complaints. Review of Systems ROS Limitations: Psychotic, Poor Historian Except as stated in HPI: all other systems reviewed are Neg Mental Status Examination Appearance: Appropriate Consciousness: Alert, Vigilant Orientation: x4 Motor Activity: Normal gait, Other (no motoric abnormalities noted) Speech: Unremarkable Language: Adequate Fund of Knowledge: Adequate Attention and Concentration: Adequate Memory: Unremarkable Mood: Angry, Irritable, Manic Affect: Irritable, Labile, Anxious Thought Process & Associations: Loose associations Thought Content: Delusional Hallucination Type: Other (appears internally stimulated) Delusion Type: Paranoid Suicidal Ideation: No Suicidal Plan: No Suicidal Intention: No Homicidal Ideation: No (unreliable to contract for safety) Homicidal Plan: No Homicidal Intention: No Insight: Poor Judgment: Poor Results Labs Labs reviewed. Hypokalemia and decreasing but still mildly elevated CK noted when last checked. Vitals/IOs Vital Signs Date Time Temp Pulse Resp B/P (MAP) Pulse Ox O2 Delivery O2 Flow Rate FiO2 09/26/17 05:57 97.9 101 18 141/84 (103) 09/25/17 18:00 100 Assessment & Plan Problem List: (1) Unspecified psychosis ICD Codes: F29 - Unspecified psychosis not due to a substance or known physiological condition (2) Unspecified mood [affective] disorder ICD Codes: F39 - Unspecified mood [affective] disorder Assessment & Plan I note that Dr. Lester is executing a cross-taper from Abilify to Zyprexa. I will titrate the patient's Zyprexa to 15 mg at bedtime to target psychosis. Since the patient remains fairly psychotic and required an ETO, I will not taper the Abilify at this time and will defer further adjustments to Dr. Lester. I reviewed the QTc on EKG on the paper chart, and this was within normal limits. Check BMP, magnesium and CK to follow-up laboratory abnormalities. [Update: BMP unremarkable and CK continues downward trend.] Continue to monitor on the high acuity unit. Continue other medications and care as ordered. Justification for Cont. Inpt. Medication changes. Impairment in reality construction. Impairment in safety. High risk for decompensation in less restrictive environment. Discharge Planning Per Dr. Lester. Ben Yang MD Sep 26, 2017 10:30
[2017-09-26 11:59] LABS: BICARBONATE 29.9 MEQ/L (21.0-32.0); CALCIUM 9.3 MG/DL (8.5-10.1); CREATININE 0.92 MG/DL (0.60-1.30); MAGNESIUM 2.3 MG/DL (1.5-2.5)
[2017-09-26 18:11] VITALS: BP 129/85; PULSE 91; RESP 18; TEMP 98.6; O2SAT 100
[2017-09-26] MEDS: diphenhydrAMINE HCL 50 MG CAP PO PRN (20:21)
[2017-09-26] MEDS ORDERED: OLANZapine 5 MG TAB PO SCH (21:00)
[2017-09-27 06:25] VITALS: BP 120/83; PULSE 96; RESP 16; TEMP 97.7; O2SAT 96
[2017-09-27] MEDS: ARIPiprazole 10 MG TAB PO SCH (08:51)
[2017-09-27] MEDS: DIVALPROEX SODIUM E.R. 250 MG TAB PO SCH ×2 (08:51→20:22)
[2017-09-27] MEDS: LORazepam 1 MG TAB PO PRN (08:51)
[2017-09-27] MEDS: REMOVE OLD PATCH T-DERMAL SCH (08:53)
--- NOTE | 2017-09-27 12:00 | HHI.PYPN ---
Subjective Remarks Patient seen for follow-up, chart reviewed. Discussion with nursing staff reported patient was agitated this morning continue to be disorganized. Patient found sitting in hospital chair in the room noted to be irritable and argumentative with rider nurse. Patient states that he can continue his treatment outpatient stated that he did not along the hospital stating that he is primarily here because of seizure disorder. Patient to be somewhat disorganized in interview today from topic to topic with poor insight. Patient was explained treatment plan of cross tapering Abilify with Zyprexa along with continuing Depakote at current dose as he is now on therapeutic levels. Patient states that he requires higher dose of Depakote stating that he has been treated by Dr. Peguero outpatient for seizure disorder since states allergies experiencing "muscle spasms "but has not been witnessed by staff to have had any seizure activity on the unit. Patient continues to be irritable and stating that he may start refusing medications and is not discharged. Review of Systems Except as stated in HPI: all other systems reviewed are Neg Mental Status Examination Appearance: Appropriate Consciousness: Alert, Vigilant Orientation: x4 Motor Activity: Normal gait, Other (no motoric abnormalities noted) Speech: Unremarkable Language: Adequate Fund of Knowledge: Adequate Attention and Concentration: Adequate Memory: Unremarkable Mood: Angry, Irritable Affect: Irritable, Labile, Anxious Thought Process & Associations: Loose associations, Disorganized (at times) Thought Content: Delusional Hallucination Type: Other (appears internally stimulated) Delusion Type: Paranoid Suicidal Ideation: No Suicidal Plan: No Suicidal Intention: No Homicidal Ideation: No (unreliable to contract for safety) Homicidal Plan: No Homicidal Intention: No Insight: Poor Judgment: Poor Results Vitals/IOs Vital Signs Date Time Temp Pulse Resp B/P (MAP) Pulse Ox O2 Delivery O2 Flow Rate FiO2 09/27/17 06:25 97.7 96 16 120/83 (08) 96 Assessment & Plan Problem List: (1) Unspecified psychosis ICD Codes: F29 - Unspecified psychosis not due to a substance or known physiological condition (2) Unspecified mood [affective] disorder ICD Codes: F39 - Unspecified mood [affective] disorder Assessment & Plan Patient this time continues to be noted to be irritable, agitated at times. Patient was provided ETO yesterday due to agitation but hasn't received any further ETO since that time. We'll continue cross taper decreasing Abilify to 15 mg by mouth daily and increasing olanzapine to 20 mg by mouth at bedtime. Continue Depakote for mood stabilization as current doses at therapeutic range. We'll attempt to contact patient's for update in his treatment as well as reach Dr. Peguero who he states was managing his seizures in the past. Continue rest of medications. Discharge planning in progress Justification for Cont. Inpt. At risk for further decompensation if at lower level of care Discharge Planning Patient to be discharged back to [facility] once psychiatrically stable. Raj Lester MD Sep 27, 2017 12:00
[2017-09-27] MEDS: OLANZapine 10 MG TAB PO SCH (20:22)
[2017-09-27] MEDS: diphenhydrAMINE HCL 50 MG CAP PO PRN (20:23)
[2017-09-28 05:55] VITALS: BP 134/62; PULSE 68; RESP 18; TEMP 97.2; O2SAT 97
[2017-09-28] MEDS: LORazepam 1 MG TAB PO PRN ×2 (07:54→20:26)
[2017-09-28] MEDS: diphenhydrAMINE HCL 50 MG CAP PO PRN ×2 (07:54→20:26)
[2017-09-28] MEDS: DIVALPROEX SODIUM E.R. 250 MG TAB PO SCH ×2 (07:54→20:25)
[2017-09-28] MEDS: REMOVE OLD PATCH T-DERMAL SCH (07:56)
[2017-09-28] MEDS ORDERED: ARIPiprazole 15 MG TAB PO SCH (09:00)
--- NOTE | 2017-09-28 15:44 | HHI.PYPN ---
Subjective Remarks Patient seen for follow-up, chart reviewed. Discussion to report of the patient this morning was noted to be hyperverbal, intrusive, irritable, and refusing EEG yesterday as well as today. He was also noted that patient continues to be hyper zoroastrian at times and making bizarre statements. Patient provided with Benadryl and Ativan earlier today which patient was noted to have less irritability and intrusiveness for the rest of the afternoon. Patient was found sitting in the day room noted to be oppositional, with proposal lead writer. Patient states that he has a feeling upset that he continues to be here in the hospital wanting discharge. Patient states that he refusing EEG because he believes he does not need it. Patient was encouraged to comply with EEG study as well as with neurology consult was placed and pending. Review of Systems Except as stated in HPI: all other systems reviewed are Neg Mental Status Examination Appearance: Appropriate Consciousness: Alert, Vigilant Orientation: x4 Motor Activity: Normal gait, Other (no motoric abnormalities noted) Speech: Unremarkable Language: Adequate Fund of Knowledge: Adequate Attention and Concentration: Adequate Memory: Unremarkable Mood: Irritable Affect: Irritable, Anxious Thought Process & Associations: Loose associations, Disorganized (at times) Thought Content: Bizarre thinking, Delusional Hallucination Type: Other (appears internally stimulated) Delusion Type: Bizarre, Paranoid Suicidal Ideation: No Suicidal Plan: No Suicidal Intention: No Homicidal Ideation: No Homicidal Plan: No Homicidal Intention: No Insight: Poor Judgment: Poor Results Vitals/IOs Vital Signs Date Time Temp Pulse Resp B/P (MAP) Pulse Ox O2 Delivery O2 Flow Rate FiO2 09/28/17 05:55 97.2 68 18 134/62 (86) 97 Assessment & Plan Problem List: (1) Unspecified psychosis ICD Codes: F29 - Unspecified psychosis not due to a substance or known physiological condition (2) Unspecified mood [affective] disorder ICD Codes: F39 - Unspecified mood [affective] disorder Assessment & Plan Patient this time continues to be noted to be oppositional and irritable, intrusive with peers and staff. Patient refuses EEG twice despite encouragement comply with study. Neurology consult was placed yesterday still pending. We'll order a new valproic acid level for tomorrow morning. We'll decrease Abilify to 10 mg by mouth daily, continue Zyprexa at 20 mg by mouth at bedtime, continue rest of medications. Discharge planning in progress Justification for Cont. Inpt. At risk for further decompensation event lower level of care Discharge Planning Patient to return to [facility] once psychiatrically stable Raj Lester MD Sep 28, 2017 15:44
[2017-09-28 16:47] VITALS: BP 133/72; PULSE 101; RESP 18; TEMP 98.4; O2SAT 100
[2017-09-28] MEDS: OLANZapine 10 MG TAB PO SCH (20:26)
[2017-09-29 05:41] VITALS: BP 119/57; PULSE 92; RESP 16; TEMP 97.9; O2SAT 97
[2017-09-29] MEDS ORDERED: ARIPiprazole 10 MG TAB PO SCH (09:00)
[2017-09-29] MEDS: REMOVE OLD PATCH T-DERMAL SCH (09:00)
[2017-09-29] MEDS: DIVALPROEX SODIUM E.R. 250 MG TAB PO SCH ×2 (09:01→20:27)
--- NOTE | 2017-09-29 14:49 | PD.TTN ---
Patient Problems 1. Discharge planning 2. Medication compliance 3. Knowledge deficit 4. Lack of coping skills Progress Toward Goals Provider Present: Dr. Gloria Lester Provider Input: Pt is new from over the weekend and will be evaluated by this provider today as well as medication regiment. 09/21- Pt appears psychotic, delusional and his medication regiment will be adjusted. 09/29- Pt is fixated on medical complaints and has been threatening to refuse medication/treatment. Regiment has been adjusted to include Abilify decrease and increase in Zyprexa. Nurse(s) Present: Zahra Hurley RN Nurse(s) Input: Pt appears religiously preoccupied, delusional, psychotic, paranoid and withdrawn. 09/21- Chika Lambert RN Pt appears disorganized, less agitated, psychotic and with improving behaviors on unit. 09/29- Katina Kruse RN Pt appears irritable, D/C focused and tangential. He refuses to cooperative with various aspects of treatment. Psychiatric Counselors Present: George Gregg [facility] Psych Therapist Input: Pt appears calm, guarded, delusional, paranoid, bizarre and to be responding to internal stimuli. He has been compliant with medication regiment. Pt presents with limited insight into condition and need for care. Pt presents with limited coping and emotional regulation skills as evidenced by behavior leading to admission. 09/21- Pt continues to appear delusional, psychotic and disorganized on unit. He remains largely to himself and can become agitated at times though less so today. He presents with limited insight into condition and need for care. Pt shows limited coping and emotional regulation skills at this time. He has been compliant with medication regiment. 09/29- Pt continues to appear irritable, guarded, uncooperative and discharge focused. He states he does not feel he needs medication and is resistant to this as he was prior to admission. Insight remains poor into condition and need for care. Pt presents with limited coping and emotional regulation skills. He will be discharged home with blessing. Group Spec/RT/OT/KUNZ Present: Dimple Garcia, GPS, JOAQUINA Flaherty, Alonzo Santiago, OT Group Spec/RT/OT/KUNZ Input: Pt is a new admission from the weekend and will be evaluated. 09/21- Pt appears delusional, requires redirection, is disorganized and attends only select groups. 09/29- Alonzo Santiago, OT Pt atetnds some groups and has limited interaction with others. Discharge Plan SMA Pt will return home to live with his fiancee and will be linked to outpatient psychiatric follow up services. Documentation Scribe: ANIA Garrett Jonathan [facility] Sep 29, 2017 14:49
--- NOTE | 2017-09-29 15:50 | HHI.PYPN ---
Subjective Remarks Patient seen for follow-up, chart review. Patient found sitting in day room, cooperative but noted to be slightly irritable throughout interview. Patient states that he is feeling "okay" reports having spoken to his fiance recently which she states feels okay that she is currently working. Patient at times noted to be somewhat disorganized but mostly perseverative on discharge. Patient continued to refuse EEG and when asked for consent to ask for records from his outpatient neurologist patient states that he hasn't "no business with [place]" and refusing to sign consent. Patient reports sleeping well, stating that he has "spasms" which she reports is clinical signs prior to him having grand mal seizures which she's had in the past due to his history of epilepsy managed by his outpatient neurologist. Patient currently with poor insight into his mental illness and was requesting a medication that he could take " only when I start getting sick". Hvac R Tech attempted to provide psychoeducation which he began to become frustrated and later dismissed selling underwriter refusing to continue interview. Hvac R Tech attempted to contact patient's veronicaanceeBelen which she did not answer and selling underwriter left voice message. Review of Systems Except as stated in HPI: all other systems reviewed are Neg Mental Status Examination Appearance: Appropriate Consciousness: Alert, Vigilant Orientation: x4 Motor Activity: Normal gait, Other (no motoric abnormalities noted) Speech: Unremarkable Language: Adequate Fund of Knowledge: Adequate Attention and Concentration: Adequate Memory: Unremarkable Mood: Irritable Affect: Irritable Thought Process & Associations: Loose associations, Disorganized (at times) Thought Content: Bizarre thinking, Delusional Hallucination Type: Other (appears internally stimulated) Delusion Type: Bizarre, Paranoid Suicidal Ideation: No Suicidal Plan: No Suicidal Intention: No Homicidal Ideation: No Homicidal Plan: No Homicidal Intention: No Insight: Poor Judgment: Poor Results Labs labs reviewed. Test 09/29/17 07:25 Valproic Acid (Depakene) Level 74 MCG/ML Vitals/IOs Vital Signs Date Time Temp Pulse Resp B/P (MAP) Pulse Ox O2 Delivery O2 Flow Rate FiO2 09/29/17 05:41 97.9 92 16 119/57 (01) 97 Assessment & Plan Problem List: (1) Unspecified psychosis ICD Codes: F29 - Unspecified psychosis not due to a substance or known physiological condition (2) Unspecified mood [affective] disorder ICD Codes: F39 - Unspecified mood [affective] disorder Assessment & Plan Patient continues with irritability, perseverative on discharge, disorganized at times with poor insight. Will continue to cross taper Abilify decrease to 5mg PO daily, continue olanzapine 20mg PO HS, continue Depakote 250mg PO BID. Recent VPA level was 74.0. Neurology consult pending, will request consult again today. Continue to monitor mood and behavior. Collateral information pending from [facility] as she recently visited with patient. Discharge planning in progress. Justification for Cont. Inpt. At risk for further decompensation if at lower level of care Discharge Planning [facility] once psychiatrically stable. Raj Lester MD Sep 29, 2017 15:50
[2017-09-29 17:29] VITALS: BP 127/97; PULSE 99; RESP 17; TEMP 98.2; O2SAT 96
[2017-09-29] MEDS: OLANZapine 10 MG TAB PO SCH (20:27)
[2017-09-30 05:48] VITALS: BP 123/73; PULSE 70; RESP 16; TEMP 97.5; O2SAT 99
[2017-09-30] MEDS: REMOVE OLD PATCH T-DERMAL SCH (09:00)
[2017-09-30] MEDS ORDERED: ARIPiprazole 5 MG TAB PO SCH (09:00)
[2017-09-30] MEDS: DIVALPROEX SODIUM E.R. 250 MG TAB PO SCH (09:00)
--- NOTE | 2017-09-30 16:18 | HHI.PYPN ---
Subjective Remarks Patient seen for follow-up, chart reviewed. Mental Status Examination Appearance: Appropriate Consciousness: Alert, Vigilant Orientation: x4 Motor Activity: Normal gait, Other (no motoric abnormalities noted) Speech: Unremarkable Language: Adequate Fund of Knowledge: Adequate Attention and Concentration: Adequate Memory: Unremarkable Mood: Irritable Affect: Irritable Thought Process & Associations: Loose associations, Disorganized (at times) Thought Content: Bizarre thinking, Delusional Hallucination Type: Other (appears internally stimulated) Delusion Type: Bizarre, Paranoid Suicidal Ideation: No Suicidal Plan: No Suicidal Intention: No Homicidal Ideation: No Homicidal Plan: No Homicidal Intention: No Insight: Poor Judgment: Poor Results Vitals/IOs Vital Signs Date Time Temp Pulse Resp B/P (MAP) Pulse Ox O2 Delivery O2 Flow Rate FiO2 09/30/17 05:48 97.5 70 16 123/73 (90) 99 Intake and Output 09/30/17 09/30/17 10/01/17 08:00 16:00 00:00 Intake Total 600 ml Balance 600 ml Assessment & Plan Problem List: (1) Unspecified psychosis ICD Codes: F29 - Unspecified psychosis not due to a substance or known physiological condition (2) Unspecified mood [affective] disorder ICD Codes: F39 - Unspecified mood [affective] disorder Assessment & Plan Estimated LOS: Raj Torres MD Sep 30, 2017 16:18
--- NOTE | 2017-09-30 17:27 | MB ---
cc: KRISTEN CHILDRESS MD DATE OF CONSULTATION 09/30/17 1987 REASON FOR CONSULTATION History of seizures, medicine adjustment. HISTORY OF PRESENT ILLNESS The patient is a 32-year-old male with a psychiatric history, previously [place] Acted, agitated, combative. He was brought in. He has a history of possible seizures on Depakote ER 500 mg twice a day, follows with a neurologist, Liza. His level when he came in was 133, currently yesterday was 74. He is not very forthcoming on what type of seizures or why he is on the medication. He also has history of bipolar disorder, possibly. PHYSICAL EXAMINATION He is awake, alert. Speech is normal. Pupils reactive. Face symmetrical. Motor hannah - he does not have any lateralizing weakness. Gait normal. LABORATORY DATA Reviewed. His tox screen - Depakote level on 09/21 was 133 and on 09/29 is 74. He was changed from 500 mg b.i.d. Depakote ER to 250 mg b.i.d. IMPRESSION Possible history of epilepsy. RECOMMENDATION Recommend changing his Depakote to 250 mg in the morning, 500 mg at bedtime. I have already done that. Monitor his levels. If his levels continue to rise then go back to 250 mg b.i.d. He should follow up with his neurologist, Dr. De Jesus, At this point in time, neurologically he looks stable. Monitor for seizures. Maintain seizure precautions. MD ELIAS Howard/ /4:59 PM /5:04 PM
[2017-09-30 18:05] VITALS: BP 130/75; PULSE 64; RESP 17; TEMP 97.1; O2SAT 100
[2017-09-30] MEDS: DIVALPROEX SODIUM E.R. 500 MG TAB PO SCH (20:19)
[2017-09-30] MEDS: OLANZapine 10 MG TAB PO SCH (20:19)
[2017-09-30] MEDS: ACETAMINOPHEN 325 MG TAB PO PRN (20:34)
[2017-09-30] MEDS: diphenhydrAMINE HCL 50 MG CAP PO PRN (20:35)
--- NOTE | 2017-09-30 20:48 | HHI.PYPN ---
Subjective Remarks Patient seen for follow up; chart reviewed. Patient found in room lying on hospital bed; calm and cooperative with interview. Patient noted to be less irritable, more engaging and more organized but continues with poor insight into his mental illness believing that he can be given a medication which he can take "only when I get sick". Patient counseled on importance of adherence to treatment and psychoeducation was attempted to be provided. He denies any AH or VH but continues to be somewhat paranoid, at times makes nonsensical remarks but improving. Patient attends some groups and noted to be more cooperative with staff. Review of Systems Except as stated in HPI: all other systems reviewed are Neg Mental Status Examination Appearance: Appropriate Consciousness: Alert, Vigilant Orientation: x4 Motor Activity: Normal gait, Other (no motoric abnormalities noted) Speech: Unremarkable Language: Adequate Fund of Knowledge: Adequate Attention and Concentration: Adequate Memory: Unremarkable Mood: Irritable (less so today) Affect: Irritable (less so today) Thought Process & Associations: Loose associations, Disorganized (less so today ) Thought Content: Bizarre thinking, Delusional Hallucination Type: Other (appears internally stimulated) Delusion Type: Bizarre, Paranoid Suicidal Ideation: No Suicidal Plan: No Suicidal Intention: No Homicidal Ideation: No Homicidal Plan: No Homicidal Intention: No Insight: Poor Judgment: Poor Results Vitals/IOs Vital Signs Date Time Temp Pulse Resp B/P (MAP) Pulse Ox O2 Delivery O2 Flow Rate FiO2 09/30/17 18:05 97.1 64 17 130/75 (93) 100 Intake and Output 09/30/17 09/30/17 10/01/17 08:00 16:00 00:00 Intake Total 600 ml Balance 600 ml Assessment & Plan Problem List: (1) Unspecified psychosis ICD Codes: F29 - Unspecified psychosis not due to a substance or known physiological condition (2) Unspecified mood [affective] disorder ICD Codes: F39 - Unspecified mood [affective] disorder Assessment & Plan Patient noted to be improving with less disorganization, noted to be more engaging but continues with paranoia. Discontinue abilify. Continue olanzapine 20mg PO HS, continue recommendations as per neurology consult; consult appreciated. Collateral information pending from [facility]. Discharge planning in progress. Justification for Cont. Inpt. At risk for further decompensation if at lower level of care. Discharge Planning To return back to [facility] residence when psychiatrically stable. Raj Lester MD Sep 30, 2017 20:48
[2017-10-01 05:46] VITALS: BP 166/66; PULSE 84; RESP 18; TEMP 97.1; O2SAT 100
[2017-10-01] MEDS: DIVALPROEX SODIUM E.R. 250 MG TAB PO SCH (08:22)
[2017-10-01] MEDS: REMOVE OLD PATCH T-DERMAL SCH (09:00)
--- NOTE | 2017-10-01 12:34 | HHI.PYPN ---
Subjective Remarks Pt seen and discussed with staff. He is tolerating medications without side effects. He remains irritable and labile but has been less aggressive today. He slept poorly last night. He remains internally stimulated with bizarre inappropriate responses at times. He has been quoting the bible at staff. Compliant with medications and denies side effects. Mental Status Examination Appearance: Appropriate Consciousness: Alert, Vigilant Orientation: x4 Motor Activity: Normal gait, Other (no motoric abnormalities noted) Speech: Unremarkable Language: Adequate Fund of Knowledge: Adequate Attention and Concentration: Adequate Memory: Unremarkable Mood: Irritable (less so today) Affect: Irritable (less so today) Thought Process & Associations: Loose associations, Disorganized (less so today ) Thought Content: Bizarre thinking, Delusional Hallucination Type: Other (appears internally stimulated) Delusion Type: Bizarre, Paranoid Suicidal Ideation: No Suicidal Plan: No Suicidal Intention: No Homicidal Ideation: No Homicidal Plan: No Homicidal Intention: No Insight: Poor Judgment: Poor Results Vitals/IOs Vital Signs Date Time Temp Pulse Resp B/P (MAP) Pulse Ox O2 Delivery O2 Flow Rate FiO2 10/01/17 05:46 97.1 84 18 166/66 (99) 100 Assessment & Plan Problem List: (1) Unspecified psychosis ICD Codes: F29 - Unspecified psychosis not due to a substance or known physiological condition (2) Unspecified mood [affective] disorder ICD Codes: F39 - Unspecified mood [affective] disorder Assessment & Plan Continue current tx plan. Estimated LOS: days Justification for Cont. Inpt. impairments in reality testing Hayley Rollins MD Oct 01, 2017 12:34
[2017-10-01] MEDS: DIVALPROEX SODIUM E.R. 500 MG TAB PO SCH (21:15)
[2017-10-01] MEDS: OLANZapine 10 MG TAB PO SCH (21:15)
[2017-10-02 05:51] VITALS: BP 150/60; PULSE 80; RESP 18; TEMP 97.3; O2SAT 99
[2017-10-02] MEDS: DIVALPROEX SODIUM E.R. 250 MG TAB PO SCH (08:30)
[2017-10-02] MEDS: REMOVE OLD PATCH T-DERMAL SCH (09:00)
--- NOTE | 2017-10-02 17:13 | HHI.PYPN ---
Subjective Remarks Pt seen and discussed with staff. Pt remains with flat affect but has been more interactive on unit. He has been compliant with medications. No SI/HI. Mental Status Examination Appearance: Appropriate Consciousness: Alert, Vigilant Orientation: x4 Motor Activity: Normal gait, Other (no motoric abnormalities noted) Speech: Unremarkable Language: Adequate Fund of Knowledge: Adequate Attention and Concentration: Adequate Memory: Unremarkable Mood: Irritable (less so today) Affect: Irritable (less so today) Thought Process & Associations: Loose associations, Disorganized (less so today ) Thought Content: Delusional Hallucination Type: Other (appears internally stimulated) Delusion Type: Paranoid (decreased) Suicidal Ideation: No Suicidal Plan: No Suicidal Intention: No Homicidal Ideation: No Homicidal Plan: No Homicidal Intention: No Insight: Poor Judgment: Poor Results Vitals/IOs Vital Signs Date Time Temp Pulse Resp B/P (MAP) Pulse Ox O2 Delivery O2 Flow Rate FiO2 10/02/17 05:51 97.3 80 18 150/60 (90) 99 Assessment & Plan Problem List: (1) Unspecified psychosis ICD Codes: F29 - Unspecified psychosis not due to a substance or known physiological condition (2) Unspecified mood [affective] disorder ICD Codes: F39 - Unspecified mood [affective] disorder Assessment & Plan Pt improving. Continue current tx plan. Estimated LOS: days Justification for Cont. Inpt. risk of decompensation Hayley Rollins MD Oct 02, 2017 17:13
[2017-10-02 17:55] VITALS: BP 116/76; PULSE 73; RESP 18; TEMP 98; O2SAT 100
[2017-10-02] MEDS: OLANZapine 10 MG TAB PO SCH (20:27)
[2017-10-02] MEDS: DIVALPROEX SODIUM E.R. 500 MG TAB PO SCH (20:28)
[2017-10-03 06:12] VITALS: BP 121/78; PULSE 58; RESP 16; TEMP 97.6; O2SAT 96
[2017-10-03] MEDS: REMOVE OLD PATCH T-DERMAL SCH (09:00)
[2017-10-03] MEDS: DIVALPROEX SODIUM E.R. 250 MG TAB PO SCH (09:57)
--- NOTE | 2017-10-03 10:08 | HHI.PYPN ---
Subjective Remarks Patient seen and examined with nurse in coverage for Dr. Lester. Chart reviewed. Case discussed with nursing staff reports the patient was somewhat irritable this morning. On my examination today, the patient appears a little internally stimulated although he denies AVH. He denies SI or HI. He tells me "everything has been Kosher." No reported side effects from medications. No physical complaints. Review of Systems Except as stated in HPI: all other systems reviewed are Neg Mental Status Examination Appearance: Appropriate Consciousness: Alert, Vigilant Orientation: x4 Motor Activity: Normal gait, Other (no abnormal motor movements appreciated) Speech: Unremarkable Language: Adequate Fund of Knowledge: Adequate Attention and Concentration: Adequate Memory: Unremarkable Mood: Irritable (mild) Affect: Blunt Thought Process & Associations: Linear Thought Content: Appropriate Hallucination Type: Other (appears somewhat internally stimulated) Delusion Type: None Suicidal Ideation: No Suicidal Plan: No Suicidal Intention: No Homicidal Ideation: No Homicidal Plan: No Homicidal Intention: No Insight: Poor Judgment: Poor Results Labs Labs reviewed. Vitals/IOs Vital Signs Date Time Temp Pulse Resp B/P (MAP) Pulse Ox O2 Delivery O2 Flow Rate FiO2 10/03/17 06:12 97.6 58 16 121/78 (92) 96 Assessment & Plan Problem List: (1) Unspecified psychosis ICD Codes: F29 - Unspecified psychosis not due to a substance or known physiological condition (2) Unspecified mood [affective] disorder ICD Codes: F39 - Unspecified mood [affective] disorder Assessment & Plan Continue current psychotropics as ordered. Continue to monitor on the inpatient unit. Continue other medications and care as ordered. Justification for Cont. Inpt. Risk for decompensation in less restrictive environment Discharge Planning Per Ben Valdivia MD Oct 03, 2017 10:08
[2017-10-03 16:24] VITALS: BP 130/84; PULSE 72; RESP 18; TEMP 98.3; O2SAT 100
[2017-10-03] MEDS: DIVALPROEX SODIUM E.R. 500 MG TAB PO SCH (20:28)
[2017-10-03] MEDS: OLANZapine 10 MG TAB PO SCH (20:28)
[2017-10-04 05:53] VITALS: BP 137/78; PULSE 72; RESP 18; TEMP 97.6; O2SAT 99
[2017-10-04] MEDS: DIVALPROEX SODIUM E.R. 250 MG TAB PO SCH (08:59)
[2017-10-04] MEDS: REMOVE OLD PATCH T-DERMAL SCH (08:59)
[2017-10-04] MEDS ORDERED: DEPA500T3 PO (11:54)
[2017-10-04] MEDS ORDERED: OLAN20TA PO (11:54)
[2017-10-04] MEDS ORDERED: DIVA250ER PO (11:54)
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
== END 2017-10-04 15:20 | disposition home or self-care (01) | DRG 885 ==
LOC: H270 16:14
PROVIDERS: ADMIT Student in an Organized Health Care Education/Training Program; ATTEND Student in an Organized Health Care Education/Training Program
DX: F29 Unspecified psychosis not due to a substance or known physiological condition (principal); M62.82 Rhabdomyolysis; R56.9 Unspecified convulsions; F39 Unspecified mood [affective] disorder; E87.6 Hypokalemia; F12.90 Cannabis use, unspecified, uncomplicated
CPT/HCPCS: 80048; 80061; 80076; 80164; 82140; 82550; 82552; 83036; 83735; 85025; 93005; J1200; J2060; J3486; Q0163